=== PATIENT | male | born 1960 | race Caucasian/White ===

== ENCOUNTER 2021-03-15 11:32 | Emergency (ER) | payer OTHER ==
[2021-03-15 13:59] LABS: #Eosinphils 0.1 thou/uL (0.0-0.7); #Lymphocytes 3.4 thou/uL (1.20-3.40); #Monocytes 1.4 thou/uL (0.11-0.59); #Neutrophils 7.5 thou/uL (1.40-6.50); %Basophils 0.2 % (0.0-1.0); %Lymphocytes 27.1 % (21.0-51.0); %Monocytes 11.2 % (0.0-10.0); %Neutrophils 60.4 % (42.0-75.0); Hemoglobin 14.2 g/dL (14.0-18.0); Mean Corpuscular HGB CONC 35.1 g/dL (32.0-36.0); Mean Corpuscular Hemoglobin 31.6 pg (27.0-31.0); Mean Corpuscular Volume 90.1 fL (78.0-98.0); Mean Platelet Volume 6.2 fL (7.4-10.4); Platelet Count 259 thou/uL (130-400); RBC Distribution Width 12.2 % (11.5-14.5); Red Blood Cell (RBC) Count 4.48 mill/uL (4.70-6.10); White Blood Cell (WBC) Count 12.4 thou/uL (4.8-10.8)
[2021-03-15 14:07] LABS: Bilirubin Negative (Negative); Blood, Urine Negative (Negative); Clarity Clear (Clear); Glucose, Urine (Dipstick) 70 mg/dL (Negative); Ketone, Urine Negative (Negative); Leukocyte Negative Leu/uL (Negative); Nitrite Negative (Negative); Protein, Urine (Dipstick) Negative (Neg-Trace); Specific Gravity, Urine 1.015 (1.002-1.036); Urobilinogen Normal mg/dL (Less than 2); pH, Urine 6.5 (5.0-9.0)
[2021-03-15 14:22] LABS: ALT (SGPT) 27 U/L (8-55); AST (SGOT) 29 U/L (5-34); Albumin 4.2 g/dL (3.4-4.8); Alkaline Phosphatase 80 U/L (40-110); Anion Gap 13 mmol/L (10-20); BUN (Urea Nitrogen) 10 mg/dL (8.4-25.7); Bilirubin, Total 1.6 mg/dL (0.2-1.2); Calc. Creatinine Clearance 0 mL/min (70-130); Calcium 9.6 mg/dL (7.8-10.44); Carbon Dioxide 24 mmol/L (23-31); Chloride 95 mmol/L (98-107); Globulin 2.8 g/dL (2.4-3.5); Glucose 125 mg/dL (80-115); Lipase 35 U/L (8-78); Sodium 128 mmol/L (136-145)
== END 2021-03-15 15:52 | disposition home or self-care (01) ==
LOC: ERS 11:32
DX: M54.5 Low back pain (principal); B02.9 Zoster without complications; E03.9 Hypothyroidism, unspecified; K21.9 Gastro-esophageal reflux disease without esophagitis; Z85.841 Personal history of malignant neoplasm of brain
CPT/HCPCS: 36415; 80053; 81003; 83690; 85025; 99284

== ENCOUNTER 2021-04-14 10:30 | Outpatient (CLI) | payer OTHER | END 2021-04-14 10:31 | disposition home or self-care (01) | LOC: PET 10:30 | PROVIDERS: ATTEND Internal Medicine Hematology & Oncology | DX: C34.01 Malignant neoplasm of right main bronchus (principal); R91.8 Other nonspecific abnormal finding of lung field | CPT/HCPCS: 78815; A9552 ==

== ENCOUNTER 2021-06-09 12:42 | Day surgery (SDC) | payer OTHER ==
[2021-06-09] MEDS ORDERED: diphenhydrAMINE 25 MG CAP ONE (13:15)
[2021-06-09] MEDS ORDERED: Acetaminophen 500 MG TAB ONE (13:15)
[2021-06-09] MEDS ORDERED: Sodium Chloride 0.9% 10 ML ONE ×2 (13:15)
[2021-06-09 17:01] VITALS: BP 167/93; TEMP 97.8
== END 2021-06-09 17:00 | disposition home or self-care (01) ==
LOC: ONC/OP 12:42
PROVIDERS: ATTEND Internal Medicine Hematology & Oncology
PROC: 30233N1 Transfusion of Nonautologous Red Blood Cells into Peripheral Vein, Percutaneous Approach (ICD-10-PCS; principal; 2021-06-09)
DX: D64.9 Anemia, unspecified (principal); D69.6 Thrombocytopenia, unspecified
CPT/HCPCS: 36430; 86850; 86900; 86901; J1642; P9016

== ENCOUNTER 2021-06-14 09:45 | Outpatient (CLI) | payer OTHER | END 2021-06-14 09:46 | disposition home or self-care (01) | LOC: PET 09:45 | PROVIDERS: ATTEND Internal Medicine Hematology & Oncology | DX: C34.01 Malignant neoplasm of right main bronchus (principal); C79.31 Secondary malignant neoplasm of brain; C79.9 Secondary malignant neoplasm of unspecified site | CPT/HCPCS: 78815; A9552 ==

== ENCOUNTER 2021-06-19 13:34 | Inpatient (IN) | payer OTHER ==
[~2021-06-19 13:34] MED LIST: Iopamidol-370 76% 500 ML 1 ML ONE
[2021-06-19 14:19] LABS: Bilirubin Negative (Negative); Blood, Urine Negative (Negative); Clarity Clear (Clear); Glucose, Urine (Dipstick) 50 mg/dL (Negative); Ketone, Urine Negative (Negative); Leukocyte Negative Leu/uL (Negative); Nitrite Negative (Negative); Protein, Urine (Dipstick) 20 mg/dL (Neg-Trace); Specific Gravity, Urine 1.013 (1.002-1.036); Urobilinogen Normal mg/dL (Less than 2)
[2021-06-19 14:23] LABS: Hemoglobin 4.7 g/dL (14.0-18.0); Mean Corpuscular HGB CONC 37.7 g/dL (32.0-36.0); Mean Corpuscular Hemoglobin 35.3 pg (27.0-31.0); Mean Corpuscular Volume 93.6 fL (78.0-98.0); Mean Platelet Volume 7.4 fL (7.4-10.4); Platelet Count 35 thou/uL (130-400); RBC Distribution Width 13.3 % (11.5-14.5); Red Blood Cell (RBC) Count 1.33 mill/uL (4.70-6.10); White Blood Cell (WBC) Count 0.7 thou/uL (4.8-10.8)
[2021-06-19 14:37] LABS: ALT (SGPT) 32 U/L (8-55); AST (SGOT) 24 U/L (5-34); Albumin 3.8 g/dL (3.4-4.8); Alkaline Phosphatase 129 U/L (40-110); Anion Gap 16 mmol/L (10-20); BUN (Urea Nitrogen) 20 mg/dL (8.4-25.7); Bilirubin, Total 0.9 mg/dL (0.2-1.2); Calc. Creatinine Clearance 0 mL/min (70-130); Calcium 8.8 mg/dL (7.8-10.44); Carbon Dioxide 22 mmol/L (23-31); Chloride 101 mmol/L (98-107); Globulin 2.7 g/dL (2.4-3.5); Glucose 226 mg/dL (80-115); Potassium 3.1 mmol/L (3.5-5.1); Protein, Total 6.5 g/dL (5.8-8.1); Sodium 136 mmol/L (136-145)
[2021-06-19 14:42] LABS: Magnesium 0.8 mg/dL (1.6-2.6)
[2021-06-19 14:44] LABS: Band 7 % (5-11); Dohle Bodies SLIGHT; Lymphocytes 44 % (21-51); MDiff Complete? YES; Metamyelocyte 1 % (0-0); Monocytes 13 % (0-10); Neutrophil 32 % (42-75); Ovalocytes SLIGHT = 2-5 cells (100X) (0-1/hpf); Platelet Morphology Comment Appears Decreased; Polychromasia SLIGHT = 2-3 cells (100X) (0-2/hpf); Reactive Lymphocytes 3 % (0-10)
[2021-06-19 15:46] LABS: Hemoglobin 4.6 g/dL (14.0-18.0); Mean Corpuscular HGB CONC 36.5 g/dL (32.0-36.0); Mean Corpuscular Hemoglobin 34.7 pg (27.0-31.0); Mean Corpuscular Volume 95.1 fL (78.0-98.0); Mean Platelet Volume 8.2 fL (7.4-10.4); Platelet Count 42 thou/uL (130-400); RBC Distribution Width 13.6 % (11.5-14.5); Red Blood Cell (RBC) Count 1.33 mill/uL (4.70-6.10); White Blood Cell (WBC) Count 0.6 thou/uL (4.8-10.8)
[2021-06-19 16:08] LABS: Band 8 % (5-11); Dohle Bodies SLIGHT; Lymphocytes 58 % (21-51); MDiff Complete? YES; Monocytes 8 % (0-10); Neutrophil 24 % (42-75); Platelet Morphology Comment Appears Decreased; Polychromasia SLIGHT = 2-3 cells (100X) (0-2/hpf)
[2021-06-19 16:45] LABS: SARS-CoV-2 NAA Rapid Test Not Detected (NotDetected)
[2021-06-19] MEDS ORDERED: Magnesium 2 GM/50 ML BAG (IN WATER) ONE (17:07)
[2021-06-19] MEDS ORDERED: Ondansetron ODT 4 MG TAB PO PRN (17:48)
[2021-06-19] MEDS ORDERED: Ondansetron PF 4 MG/2 ML Vial IVP PRN (17:48)
[2021-06-19] MEDS ORDERED: Potassium Chloride 20 MEQ TAB PO SCH ×2 (17:48→21:00)
[2021-06-19 18:32] VITALS: BMI 26.0
[2021-06-19] MEDS: Famotidine 20 MG TAB PO SCH (21:01)
[2021-06-19] MEDS ORDERED: Magnesium 2 GM/50 ML 2 GM in Premix Bag 1 BAG IVPB SCH (22:00)
[2021-06-20] MEDS: Sodium Chloride 0.9% 1,000 ML IV SCH ×2 (03:13→17:42)
[2021-06-20] MEDS: Levothyroxine 150 MCG TAB PO SCH (05:35)
[2021-06-20 05:57] LABS: Hemoglobin 6.2 g/dL (14.0-18.0); Mean Corpuscular HGB CONC 36.9 g/dL (32.0-36.0); Mean Corpuscular Hemoglobin 33.7 pg (27.0-31.0); Mean Corpuscular Volume 91.5 fL (78.0-98.0); Mean Platelet Volume 7.6 fL (7.4-10.4); Platelet Count 24 thou/uL (130-400); RBC Distribution Width 13.2 % (11.5-14.5); Red Blood Cell (RBC) Count 1.84 mill/uL (4.70-6.10); White Blood Cell (WBC) Count 0.3 thou/uL (4.8-10.8)
[2021-06-20 06:17] LABS: MDiff Complete? YES; Platelet Morphology Comment Appears Decreased; Spherocytes SLIGHT = 1-5 cells (100X) (None Seen)
[2021-06-20 06:24] LABS: ALT (SGPT) 27 U/L (8-55); AST (SGOT) 20 U/L (5-34); Albumin 3.3 g/dL (3.4-4.8); Alkaline Phosphatase 108 U/L (40-110); Anion Gap 15 mmol/L (10-20); BUN (Urea Nitrogen) 16 mg/dL (8.4-25.7); Bilirubin, Total 1.4 mg/dL (0.2-1.2); Calc. Creatinine Clearance 60 mL/min (70-130); Calcium 9.1 mg/dL (7.8-10.44); Carbon Dioxide 23 mmol/L (23-31); Chloride 105 mmol/L (98-107); Globulin 2.8 g/dL (2.4-3.5); Glucose 116 mg/dL (80-115); Magnesium 1.1 mg/dL (1.6-2.6); Potassium 3.7 mmol/L (3.5-5.1); Protein, Total 6.1 g/dL (5.8-8.1); Sodium 139 mmol/L (136-145)
[2021-06-20] MEDS: Potassium Chloride 20 MEQ TAB PO SCH ×2 (08:56→17:42)
[2021-06-20] MEDS: Famotidine 20 MG TAB PO SCH ×2 (08:56→21:15)
[2021-06-20] MEDS ORDERED: Prevnar 13-Val Conj/PF 0.5 ML SYRINGE IM ONE (09:00)
[2021-06-20 18:39] LABS: Iron 217 ug/dL (65-175); Iron Binding Capacity, Total 221 mcg/dL (261-462)
[2021-06-20 20:16] LABS: Vitamin B12 Greater than 2000 pg/mL (211-911)
[2021-06-20 20:48] LABS: Ferritin 4688.54 ng/mL (22-322)
[2021-06-21] MEDS: Sodium Chloride 0.9% 1,000 ML IV SCH ×4 (00:58→16:39)
[2021-06-21] MEDS: Levothyroxine 150 MCG TAB PO SCH (05:48)
[2021-06-21 06:04] LABS: Hemoglobin 5.6 g/dL (14.0-18.0); Platelet Count 14 thou/uL (130-400)
[2021-06-21 06:19] LABS: Band 4 % (5-11); Lymphocytes 46 % (21-51); MDiff Complete? YES; Mean Corpuscular HGB CONC 36.7 g/dL (32.0-36.0); Mean Corpuscular Hemoglobin 34.1 pg (27.0-31.0); Mean Platelet Volume 7.8 fL (7.4-10.4); Monocytes 8 % (0-10); Neutrophil 42 % (42-75); Platelet Morphology Comment Appears Decreased; RBC Distribution Width 13.3 % (11.5-14.5); Red Blood Cell (RBC) Count 1.64 mill/uL (4.70-6.10)
[2021-06-21 06:26] LABS: Anion Gap 9 mmol/L (10-20); BUN (Urea Nitrogen) 12 mg/dL (8.4-25.7); Calc. Creatinine Clearance 69 mL/min (70-130); Calcium 9.1 mg/dL (7.8-10.44); Carbon Dioxide 24 mmol/L (23-31); Chloride 112 mmol/L (98-107); Glucose 84 mg/dL (80-115); Magnesium 1.2 mg/dL (1.6-2.6); Potassium 3.9 mmol/L (3.5-5.1); Sodium 141 mmol/L (136-145)
[2021-06-21 06:44] LABS: Hemoglobin A1c 6.6 % (4.0-6.0)
[2021-06-21] MEDS: Famotidine 20 MG TAB PO SCH ×2 (09:36→21:14)
[2021-06-21] MEDS: Potassium Chloride 20 MEQ TAB PO SCH ×2 (09:37→16:40)
[2021-06-21] MEDS ORDERED: Electrolyte Replacement Protocol 1 EACH FS SCH (15:00)
[2021-06-21] MEDS ORDERED: Magnesium Sulfate 4 GM in Sodium Chloride 0.9% 250 ML 250 ML IVPB SCH (16:30)
[2021-06-21] MEDS: Magnesium Oxide 400 MG TAB PO SCH (21:22)
[2021-06-22] MEDS: Sodium Chloride 0.9% 1,000 ML IV SCH (04:08)
[2021-06-22 04:31] LABS: Platelet Count 10 thou/uL (130-400)
[2021-06-22 05:03] LABS: Anion Gap 9 mmol/L (10-20); BUN (Urea Nitrogen) 10 mg/dL (8.4-25.7); Calc. Creatinine Clearance 68 mL/min (70-130); Calcium 9.3 mg/dL (7.8-10.44); Carbon Dioxide 24 mmol/L (23-31); Chloride 111 mmol/L (98-107); Glucose 90 mg/dL (80-115); Magnesium 1.7 mg/dL (1.6-2.6); Sodium 140 mmol/L (136-145)
[2021-06-22] MEDS: Acetaminophen 500 MG TAB PO PRN ×2 (05:43→20:37)
[2021-06-22] MEDS: Levothyroxine 150 MCG TAB PO SCH (05:44)
[2021-06-22] MEDS ORDERED: Magnesium 2 GM/50 ML 2 GM in Premix Bag 1 BAG IVPB SCH (06:00)
[2021-06-22 06:11] LABS: Hemoglobin 6.1 g/dL (14.0-18.0); Mean Corpuscular Hemoglobin 33.4 pg (27.0-31.0); Mean Corpuscular Volume 92.9 fL (78.0-98.0); Mean Platelet Volume 7.9 fL (7.4-10.4); RBC Distribution Width 13.2 % (11.5-14.5); Red Blood Cell (RBC) Count 1.82 mill/uL (4.70-6.10); White Blood Cell (WBC) Count 1.8 thou/uL (4.8-10.8)
[2021-06-22 06:12] LABS: Band 2 % (5-11); Lymphocytes 32 % (21-51); MDiff Complete? YES; Monocytes 10 % (0-10); Myelocyte 4 % (0-0); Neutrophil 52 % (42-75); Platelet Morphology Comment Appears Decreased
[2021-06-22] MEDS ORDERED: Cepastat Lozenges 1 LOZ PO PRN (09:58)
[2021-06-22] MEDS ORDERED: Hydrocerin (Eucerin) Cream 120 gm Jar TOP PRN (09:58)
[2021-06-22] MEDS ORDERED: Benzonatate 100 MG CAP PO PRN (09:58)
[2021-06-22] MEDS ORDERED: Loperamide HCl 2 MG CAP PO PRN (09:58)
[2021-06-22] MEDS ORDERED: Artificial Tear Sol 15 ML BOT EA EYE PRN (09:58)
[2021-06-22] MEDS ORDERED: Sodium Chloride 0.65% Nasal 44 ML BOT EA NARE PRN (09:58)
[2021-06-22] MEDS ORDERED: Calcium Carbonate 500 MG ChewTAB PO PRN (09:58)
[2021-06-22] MEDS ORDERED: Loratadine 10 MG TAB PO PRN (09:58)
[2021-06-22] MEDS ORDERED: Bisacodyl 5 MG TAB PO PRN (09:58)
[2021-06-22] MEDS ORDERED: hydrALAZINE 20 MG/ML VIAL SLOW IVP PRN (09:58)
[2021-06-22] MEDS ORDERED: Senokot S 8.6-50 MG TAB PO PRN (09:58)
[2021-06-22] MEDS: Magnesium Oxide 400 MG TAB PO SCH ×2 (10:23→20:37)
[2021-06-22] MEDS: Potassium Chloride 20 MEQ TAB PO SCH ×2 (10:23→19:28)
[2021-06-22] MEDS: Megestrol Acetate 800 MG/20 ML UDCUP PO SCH (10:23)
[2021-06-22] MEDS: Famotidine 20 MG TAB PO SCH ×2 (10:24→20:38)
[2021-06-22] MEDS ORDERED: Magnevist 469MG/ML 20 ML VIAL ONE (11:40)
[2021-06-22 23:14] LABS: Lactic Acid 1.4 mmol/L (0.5-2.2)
[2021-06-22] MEDS ORDERED: Piperacillin/Tazobactam 3.375 GM in Sodium Chloride 0.9% 100 ML IVPB SCH ×2 (23:15→23:59)
[2021-06-22] MEDS ORDERED: VANCOMYCIN 1.75 GM/350 ML BAG 1.75 GM in Premix Bag 1 BAG IVPB SCH (23:30)
[2021-06-23] MEDS: Piperacillin/Tazobactam 3.375 GM in Sodium Chloride 0.9% 100 ML IVPB SCH ×3 (04:10→20:49)
[2021-06-23 04:30] LABS: Platelet Count 6 thou/uL (130-400)
[2021-06-23 04:43] LABS: ALT (SGPT) 23 U/L (8-55); AST (SGOT) 27 U/L (5-34); Albumin 3.1 g/dL (3.4-4.8); Alkaline Phosphatase 113 U/L (40-110); Anion Gap 11 mmol/L (10-20); BUN (Urea Nitrogen) 13 mg/dL (8.4-25.7); Bilirubin, Total 1.5 mg/dL (0.2-1.2); Calc. Creatinine Clearance 69 mL/min (70-130); Calcium 9.8 mg/dL (7.8-10.44); Carbon Dioxide 23 mmol/L (23-31); Chloride 109 mmol/L (98-107); Glucose 138 mg/dL (80-115); Magnesium 1.3 mg/dL (1.6-2.6); Phosphorus 2.5 mg/dL (2.3-4.7); Potassium 4.4 mmol/L (3.5-5.1); Protein, Total 6.1 g/dL (5.8-8.1); Sodium 139 mmol/L (136-145)
[2021-06-23 04:48] LABS: Band 28 % (5-11); Hemoglobin 8.6 g/dL (14.0-18.0); Lymphocytes 12 % (21-51); MDiff Complete? YES; Mean Corpuscular HGB CONC 36.1 g/dL (32.0-36.0); Mean Corpuscular Hemoglobin 32.9 pg (27.0-31.0); Mean Corpuscular Volume 91.4 fL (78.0-98.0); Mean Platelet Volume 11.9 fL (7.4-10.4); Monocytes 10 % (0-10); Neutrophil 50 % (42-75); Platelet Morphology Comment Appears Decreased; RBC Distribution Width 13.5 % (11.5-14.5); RBC Morphology Normal; White Blood Cell (WBC) Count 1.6 thou/uL (4.8-10.8)
[2021-06-23] MEDS ORDERED: Magnesium 2 GM/50 ML 2 GM in Premix Bag 1 BAG IVPB SCH (05:45)
[2021-06-23] MEDS: Levothyroxine 150 MCG TAB PO SCH (06:31)
[2021-06-23] MEDS ORDERED: Magnesium Sulfate 4 GM in Sodium Chloride 0.9% 250 ML 250 ML IVPB SCH (07:00)
[2021-06-23] MEDS: Megestrol Acetate 800 MG/20 ML UDCUP PO SCH (09:21)
[2021-06-23] MEDS: Famotidine 20 MG TAB PO SCH ×2 (09:21→21:07)
[2021-06-23] MEDS: Potassium Chloride 20 MEQ TAB PO SCH ×2 (09:22→17:10)
[2021-06-23] MEDS: Magnesium Oxide 400 MG TAB PO SCH ×2 (09:22→20:50)
[2021-06-23 12:26] LABS: Mean Corpuscular HGB CONC 35.1 g/dL (32.0-36.0); Mean Corpuscular Hemoglobin 31.8 pg (27.0-31.0); Mean Corpuscular Volume 90.6 fL (78.0-98.0); Mean Platelet Volume 11.5 fL (7.4-10.4); Platelet Count 6 thou/uL (130-400); RBC Distribution Width 13.7 % (11.5-14.5); Red Blood Cell (RBC) Count 2.21 mill/uL (4.70-6.10); White Blood Cell (WBC) Count 2.5 thou/uL (4.8-10.8)
[2021-06-23] MEDS ORDERED: OCTAGAM 10% (10 GM/100 ML VIAL) IVPB SCH (12:45)
[2021-06-23] MEDS: Vancomycin 1 GM in Premix Bag 1 BAG IVPB SCH (13:03)
[2021-06-23] MEDS ORDERED: ADMIXTURE FEE IVPB SCH (13:45)
[2021-06-23] MEDS ORDERED: Dexamethasone 4 MG TAB PO SCH (13:45)
[2021-06-23] MEDS ORDERED: OCTAGAM IVPB SCH (13:45)
[2021-06-23] MEDS ORDERED: diphenhydrAMINE 25 MG CAP PO SCH (15:15)
[2021-06-23] MEDS: Acetaminophen 500 MG TAB PO PRN (15:22)
[2021-06-24] MEDS: Vancomycin 1 GM in Premix Bag 1 BAG IVPB SCH ×2 (00:52→13:05)
[2021-06-24] MEDS: Piperacillin/Tazobactam 3.375 GM in Sodium Chloride 0.9% 100 ML IVPB SCH ×3 (04:45→19:47)
[2021-06-24] MEDS: Levothyroxine 150 MCG TAB PO SCH (05:43)
[2021-06-24] MEDS: Dexamethasone 4 MG TAB PO SCH (08:03)
[2021-06-24] MEDS: Megestrol Acetate 800 MG/20 ML UDCUP PO SCH (08:03)
[2021-06-24] MEDS: Famotidine 20 MG TAB PO SCH (08:04)
[2021-06-24] MEDS: Potassium Chloride 20 MEQ TAB PO SCH ×2 (08:04→16:44)
[2021-06-24] MEDS: Magnesium Oxide 400 MG TAB PO SCH ×2 (08:04→20:37)
[2021-06-24 10:29] LABS: Mean Corpuscular HGB CONC 35.9 g/dL (32.0-36.0); Mean Corpuscular Hemoglobin 32.8 pg (27.0-31.0); Mean Corpuscular Volume 91.4 fL (78.0-98.0); Mean Platelet Volume 12.8 fL (7.4-10.4); Platelet Count 7 thou/uL (130-400); RBC Distribution Width 14.1 % (11.5-14.5); Red Blood Cell (RBC) Count 2.15 mill/uL (4.70-6.10); White Blood Cell (WBC) Count 4.3 thou/uL (4.8-10.8)
[2021-06-24 11:12] LABS: #Lymphocytes 0.8 thou/uL (1.20-3.40); #Monocytes 0.2 thou/uL (0.11-0.59); #Neutrophils 3.4 thou/uL (1.40-6.50); %Eosinophils 0.6 % (0.0-10.0); %Lymphocytes 18.6 % (21.0-51.0); %Monocytes 3.5 % (0.0-10.0); %Neutrophils 77.4 % (42.0-75.0); Band 23 % (5-11); Lymphocytes 15 % (21-51); MDiff Complete? YES; Monocytes 7 % (0-10); Neutrophil 55 % (42-75); Platelet Morphology Comment Appears Decreased; Polychromasia SLIGHT = 2-3 cells (100X) (0-2/hpf)
[2021-06-24 11:48] LABS: Vancomycin, Trough 24.9 ug/mL
[2021-06-24] MEDS: Vancomycin HCl 750 MG in Sodium Chloride 0.9% 250 ML 250 ML IVPB SCH ×2 (12:58→23:48)
[2021-06-24] MEDS: Mirtazapine 30 MG TAB PO SCH (20:37)
[2021-06-25] MEDS: Piperacillin/Tazobactam 3.375 GM in Sodium Chloride 0.9% 100 ML IVPB SCH ×3 (03:56→19:18)
[2021-06-25] MEDS: Levothyroxine 150 MCG TAB PO SCH (06:22)
[2021-06-25 07:18] LABS: Phosphorus 3.4 mg/dL (2.3-4.7)
[2021-06-25 07:21] LABS: Anion Gap 13 mmol/L (10-20); BUN (Urea Nitrogen) 25 mg/dL (8.4-25.7); Calc. Creatinine Clearance 52 mL/min (70-130); Calcium 10.4 mg/dL (7.8-10.44); Carbon Dioxide 18 mmol/L (23-31); Chloride 110 mmol/L (98-107); Glucose 248 mg/dL (80-115); Magnesium 1.3 mg/dL (1.6-2.6); Potassium 5.1 mmol/L (3.5-5.1); Sodium 136 mmol/L (136-145)
[2021-06-25 07:27] LABS: Band 19 % (5-11); Hemoglobin 6.5 g/dL (14.0-18.0); Lymphocytes 15 % (21-51); MDiff Complete? YES; Mean Corpuscular HGB CONC 34.5 g/dL (32.0-36.0); Mean Corpuscular Hemoglobin 31.7 pg (27.0-31.0); Mean Corpuscular Volume 91.8 fL (78.0-98.0); Mean Platelet Volume 12.1 fL (7.4-10.4); Metamyelocyte 3 % (0-0); Monocytes 1 % (0-10); Myelocyte 1 % (0-0); Neutrophil 61 % (42-75); Platelet Count 12 thou/uL (130-400); Platelet Morphology Comment Appears Decreased; RBC Distribution Width 14.2 % (11.5-14.5); Red Blood Cell (RBC) Count 2.05 mill/uL (4.70-6.10); White Blood Cell (WBC) Count 9.2 thou/uL (4.8-10.8)
[2021-06-25] MEDS ORDERED: Magnesium Sulfate 4 GM in Sodium Chloride 0.9% 250 ML 250 ML IVPB SCH (08:00)
[2021-06-25] MEDS: Magnesium Oxide 400 MG TAB PO SCH ×2 (08:19→20:36)
[2021-06-25] MEDS: Potassium Chloride 20 MEQ TAB PO SCH ×2 (08:19→16:55)
[2021-06-25] MEDS: Megestrol Acetate 800 MG/20 ML UDCUP PO SCH (08:19)
[2021-06-25] MEDS: Dexamethasone 4 MG TAB PO SCH (08:20)
[2021-06-25] MEDS ORDERED: Vancomycin HCl 750 MG in Sodium Chloride 0.9% 250 ML 250 ML IVPB SCH (12:00)
[2021-06-25 12:35] LABS: Vancomycin, Trough 21.4 ug/mL
[2021-06-25] MEDS: VANCOMYCIN 1.25 GM/250 ML BAG 1.25 GM in Premix Bag 1 BAG IVPB SCH (16:55)
[2021-06-25] MEDS: Mirtazapine 30 MG TAB PO SCH (20:36)
[2021-06-26] MEDS: Piperacillin/Tazobactam 3.375 GM in Sodium Chloride 0.9% 100 ML IVPB SCH ×2 (03:51→14:57)
[2021-06-26] MEDS: Levothyroxine 150 MCG TAB PO SCH (06:06)
[2021-06-26 06:27] LABS: #Monocytes 0.4 thou/uL (0.11-0.59); %Eosinophils 0.4 % (0.0-10.0); %Lymphocytes 13.3 % (21.0-51.0); %Monocytes 5.3 % (0.0-10.0); Hemoglobin 6.3 g/dL (14.0-18.0); Mean Corpuscular HGB CONC 34.8 g/dL (32.0-36.0); Mean Corpuscular Hemoglobin 32.3 pg (27.0-31.0); Mean Corpuscular Volume 92.7 fL (78.0-98.0); Mean Platelet Volume 11.7 fL (7.4-10.4); Platelet Count 19 thou/uL (130-400); RBC Distribution Width 14.1 % (11.5-14.5); Red Blood Cell (RBC) Count 1.95 mill/uL (4.70-6.10); White Blood Cell (WBC) Count 7.4 thou/uL (4.8-10.8)
[2021-06-26 07:56] LABS: MDiff Complete? YES
[2021-06-26] MEDS: Megestrol Acetate 800 MG/20 ML UDCUP PO SCH (08:52)
[2021-06-26] MEDS: Dexamethasone 4 MG TAB PO SCH (08:53)
[2021-06-26] MEDS: Potassium Chloride 20 MEQ TAB PO SCH (08:53)
[2021-06-26] MEDS: Magnesium Oxide 400 MG TAB PO SCH (08:53)
[2021-06-26] MEDS: VANCOMYCIN 1.25 GM/250 ML BAG 1.25 GM in Premix Bag 1 BAG IVPB SCH (16:58)
[2021-06-26 17:27] VITALS: BP 152/86; TEMP 97.5
== END 2021-06-26 18:22 | disposition home or self-care (01) | DRG 809 ==
LOC: ERS 13:34 → MSONC 16:18 → OBSVTOIN 17:48
PROVIDERS: ADMIT Family Medicine; ATTEND Internal Medicine
PROC: 30233N1 Transfusion of Nonautologous Red Blood Cells into Peripheral Vein, Percutaneous Approach (ICD-10-PCS; 2021-06-19)
PROC: 30233R1 Transfusion of Nonautologous Platelets into Peripheral Vein, Percutaneous Approach (ICD-10-PCS; principal; 2021-06-21)
PROC: XW03396 Introduction of Ceftolozane/Tazobactam Anti-infective into Peripheral Vein, Percutaneous Approach, New Technology Group 6 (ICD-10-PCS; 2021-06-23)
DX: D61.810 Antineoplastic chemotherapy induced pancytopenia (principal); C79.31 Secondary malignant neoplasm of brain; N17.9 Acute kidney failure, unspecified; C79.82 Secondary malignant neoplasm of genital organs; C79.70 Secondary malignant neoplasm of unspecified adrenal gland; C79.51 Secondary malignant neoplasm of bone; I25.10 Atherosclerotic heart disease of native coronary artery without angina pectoris; I12.9 Hypertensive chronic kidney disease with stage 1 through stage 4 chronic kidney disease, or unspecified chronic kidney disease; E03.9 Hypothyroidism, unspecified; K21.9 Gastro-esophageal reflux disease without esophagitis; E78.00 Pure hypercholesterolemia, unspecified; J44.9 Chronic obstructive pulmonary disease, unspecified; C80.1 Malignant (primary) neoplasm, unspecified; E83.42 Hypomagnesemia; E78.5 Hyperlipidemia, unspecified; E87.6 Hypokalemia; Z20.822 Contact with and (suspected) exposure to COVID-19; N18.2 Chronic kidney disease, stage 2 (mild); R73.9 Hyperglycemia, unspecified; D70.9 Neutropenia, unspecified; R50.81 Fever presenting with conditions classified elsewhere; T45.1X5D Adverse effect of antineoplastic and immunosuppressive drugs, subsequent encounter; Z79.82 Long term (current) use of aspirin; Z79.899 Other long term (current) drug therapy; Z87.891 Personal history of nicotine dependence
CPT/HCPCS: 36415; 36430; 70553; 71045; 71275; 80048; 80053; 80202; 81003; 82274; 82607; 82728; 82746; 83036; 83540; 83550; 83605; 83735; 83880; 84100; 84484; 85025; 86850; 86870; 86900; 86901; 86905; 86922; 87040; 93005; A9579; G0378; J1568; J1642; J2543; J3370; J3475; J3490; J7050; J8540; P9016; P9035; Q9967; U0002

== ENCOUNTER 2021-06-28 10:42 | Emergency (ER) | payer OTHER ==
[2021-06-28] MEDS ORDERED: Magnesium 2 GM/50 ML BAG (IN WATER) ONE (10:57)
[2021-06-28] MEDS ORDERED: Diltiazem 125 MG/25 ML ONE ×2 (11:04→11:05)
[2021-06-28 11:29] LABS: #Monocytes 0.7 thou/uL (0.11-0.59); %Basophils 0.5 % (0.0-1.0); %Eosinophils 0.1 % (0.0-10.0); %Monocytes 8.1 % (0.0-10.0); %Neutrophils 68.3 % (42.0-75.0); Hemoglobin 10.3 g/dL (14.0-18.0); Mean Corpuscular HGB CONC 33.7 g/dL (32.0-36.0); Mean Corpuscular Hemoglobin 31.1 pg (27.0-31.0); Mean Corpuscular Volume 92.3 fL (78.0-98.0); Mean Platelet Volume 10.7 fL (7.4-10.4); Platelet Count 54 thou/uL (130-400); RBC Distribution Width 13.3 % (11.5-14.5); Red Blood Cell (RBC) Count 3.32 mill/uL (4.70-6.10); White Blood Cell (WBC) Count 8.8 thou/uL (4.8-10.8)
[2021-06-28 11:37] LABS: PTT 25.1 sec (22.9-36.1); Prothrombin Time 13.2 sec (12.0-14.7)
[2021-06-28 11:40] LABS: D-Dimer Test 3.53 *mcg/mL (0.27-0.43)
[2021-06-28 11:41] LABS: ALT (SGPT) 75 U/L (8-55); AST (SGOT) 40 U/L (5-34); Albumin 3.7 g/dL (3.4-4.8); Alkaline Phosphatase 138 U/L (40-110); Anion Gap 15 mmol/L (10-20); BUN (Urea Nitrogen) 27 mg/dL (8.4-25.7); Bilirubin, Total 0.9 mg/dL (0.2-1.2); Calc. Creatinine Clearance 0 mL/min (70-130); Calcium 11.1 mg/dL (7.8-10.44); Carbon Dioxide 19 mmol/L (23-31); Chloride 109 mmol/L (98-107); Globulin 4.6 g/dL (2.4-3.5); Glucose 152 mg/dL (80-115); Magnesium 1.2 mg/dL (1.6-2.6); Potassium 3.9 mmol/L (3.5-5.1); Protein, Total 8.3 g/dL (5.8-8.1); Sodium 139 mmol/L (136-145)
[2021-06-28 11:42] LABS: Acetaminophen Less than 6.0 mcg/mL (10.0-30.0); Alcohol Less than 10 mg/dL (Less than 10); Salicylate Less than 8.0 mg/dL (15.0-30.0)
[2021-06-28] MEDS ORDERED: Enoxaparin Sodium 80 MG/0.8 ML SYRINGE ONE (11:51)
[2021-06-28 11:52] LABS: Bilirubin Negative (Negative); Blood, Urine Negative (Negative); Clarity Clear (Clear); Glucose, Urine (Dipstick) Normal (Negative); Ketone, Urine Negative (Negative); Leukocyte Negative Leu/uL (Negative); Nitrite Negative (Negative); Protein, Urine (Dipstick) 10 mg/dL (Neg-Trace); Specific Gravity, Urine 1.009 (1.002-1.036); Urobilinogen Normal mg/dL (Less than 2)
[2021-06-28 12:03] LABS: Amphetamine Not Detected (NotDetected); Barbiturates Screen Not Detected (NotDetected); Benzodiazepine Screen Not Detected (NotDetected); Cocaine Metabolite Screen Not Detected (NotDetected); Methadone Not Detected (NotDetected); Methamphetamine Not Detected (NotDetected); Opiate Screen Not Detected (NotDetected); Oxycodone Screen Not Detected (NotDetected); Phencyclidine (PCP) Not Detected (NotDetected); THC/Cannabinoid Screen Not Detected (NotDetected); Tricyclic Screen Not Detected (NotDetected)
== END 2021-06-28 13:58 | disposition home or self-care (01) ==
LOC: ERS 10:42
DX: D69.6 Thrombocytopenia, unspecified (principal); E03.9 Hypothyroidism, unspecified; K21.9 Gastro-esophageal reflux disease without esophagitis; I10 Essential (primary) hypertension; Z79.899 Other long term (current) drug therapy
CPT/HCPCS: 36415; 71045; 71275; 80053; 80306; 80307; 81003; 83735; 83880; 84443; 84484; 85025; 85379; 85610; 85730; 86850; 86900; 86901; 86922; 93005; 96365; 96372; J1650; J3475; Q9967

== ENCOUNTER 2021-07-05 08:53 | Day surgery (SDC) | payer OTHER ==
[2021-07-05] MEDS ORDERED: Acetaminophen 500 MG TAB PO SCH (09:30)
[2021-07-05] MEDS ORDERED: diphenhydrAMINE 25 MG CAP PO SCH (09:30)
[2021-07-05] MEDS ORDERED: diphenhydrAMINE 25 MG CAP ONE (09:38)
[2021-07-05] MEDS ORDERED: Acetaminophen 500 MG TAB ONE (09:38)
[2021-07-05] MEDS ORDERED: Sodium Chloride 0.9% 10 ML ONE (09:39)
[2021-07-05 15:02] VITALS: BP 161/89; TEMP 98.3
== END 2021-07-05 15:02 | disposition home or self-care (01) ==
LOC: ONC/OP 08:53
PROVIDERS: ATTEND Internal Medicine Hematology & Oncology
PROC: 30233N1 Transfusion of Nonautologous Red Blood Cells into Peripheral Vein, Percutaneous Approach (ICD-10-PCS; principal; 2021-07-05)
DX: D64.9 Anemia, unspecified (principal); D69.6 Thrombocytopenia, unspecified
CPT/HCPCS: 36430; 86850; 86900; 86901; 86922; P9016

== ENCOUNTER 2021-07-26 10:36 | Day surgery (SDC) | payer OTHER ==
[2021-07-26] MEDS ORDERED: diphenhydrAMINE 25 MG CAP ONE (10:49)
[2021-07-26] MEDS ORDERED: Sodium Chloride 0.9% 10 ML ONE (10:49)
[2021-07-26] MEDS ORDERED: Acetaminophen 500 MG TAB ONE (10:49)
[2021-07-26] MEDS ORDERED: diphenhydrAMINE 25 MG CAP PO SCH (11:00)
[2021-07-26] MEDS ORDERED: Acetaminophen 500 MG TAB PO SCH (11:00)
[2021-07-26 15:20] VITALS: BP 163/80; TEMP 98.1
== END 2021-07-26 15:39 | disposition home or self-care (01) ==
LOC: ONC/OP 10:36
PROVIDERS: ATTEND Internal Medicine Hematology & Oncology
PROC: 30233N1 Transfusion of Nonautologous Red Blood Cells into Peripheral Vein, Percutaneous Approach (ICD-10-PCS; principal; 2021-07-26)
DX: D64.9 Anemia, unspecified (principal); D69.6 Thrombocytopenia, unspecified
CPT/HCPCS: 36430; 86850; 86870; 86900; 86901; 86922; J1642; P9016

== ENCOUNTER 2021-08-04 09:27 | Day surgery (SDC) | payer OTHER ==
[2021-08-04] MEDS ORDERED: Sodium Chloride 0.9% 10 ML ONE (09:43)
[2021-08-04] MEDS ORDERED: diphenhydrAMINE 25 MG CAP ONE (09:44)
[2021-08-04] MEDS ORDERED: Acetaminophen 500 MG TAB ONE (09:44)
[2021-08-04 12:25] VITALS: BP 150/88; TEMP 98.4
== END 2021-08-04 12:26 | disposition home or self-care (01) ==
LOC: ONC/OP 09:27
PROVIDERS: ATTEND Internal Medicine Hematology & Oncology
PROC: 30233N1 Transfusion of Nonautologous Red Blood Cells into Peripheral Vein, Percutaneous Approach (ICD-10-PCS; principal; 2021-08-04)
DX: D64.9 Anemia, unspecified (principal)
CPT/HCPCS: 36430; 86850; 86870; 86900; 86901; 86922; J1642; P9016

== ENCOUNTER 2021-08-18 11:00 | Outpatient (CLI) | payer OTHER | END 2021-08-18 11:01 | disposition home or self-care (01) | LOC: PET 11:00 | PROVIDERS: ATTEND Internal Medicine Hematology & Oncology | DX: C34.01 Malignant neoplasm of right main bronchus (principal); C79.31 Secondary malignant neoplasm of brain; C78.7 Secondary malignant neoplasm of liver and intrahepatic bile duct; C79.72 Secondary malignant neoplasm of left adrenal gland; C79.71 Secondary malignant neoplasm of right adrenal gland; C77.4 Secondary and unspecified malignant neoplasm of inguinal and lower limb lymph nodes | CPT/HCPCS: 78815; A9552 ==

== ENCOUNTER 2021-08-26 12:41 | Outpatient (CLI) | payer OTHER | END 2021-08-26 12:42 | disposition home or self-care (01) | LOC: ULT 12:41 | PROVIDERS: ATTEND Internal Medicine Hematology & Oncology | DX: Z51.11 Encounter for antineoplastic chemotherapy (principal); C34.01 Malignant neoplasm of right main bronchus; Z79.899 Other long term (current) drug therapy | CPT/HCPCS: 93306 ==

== ENCOUNTER 2021-09-01 08:31 | Outpatient (CLI) | payer OTHER | END 2021-09-01 08:32 | disposition home or self-care (01) | LOC: MRI 08:31 | PROVIDERS: ATTEND Internal Medicine Hematology & Oncology | DX: C34.01 Malignant neoplasm of right main bronchus (principal); C79.31 Secondary malignant neoplasm of brain; G93.89 Other specified disorders of brain | CPT/HCPCS: 70553 ==

== ENCOUNTER 2021-10-06 09:07 | Inpatient (IN) | payer OTHER ==
[2021-10-06 10:30] LABS: INR-International Normal Ratio 1.2
[2021-10-06 10:35] LABS: PTT 20.2 sec (22.9-36.1)
[2021-10-06 10:40] LABS: ALT (SGPT) 27 U/L (8-55); AST (SGOT) 36 U/L (5-34); Albumin 3.2 g/dL (3.4-4.8); Alkaline Phosphatase 117 U/L (40-110); Anion Gap 24 mmol/L (10-20); BUN (Urea Nitrogen) 42 mg/dL (8.4-25.7); Bilirubin, Total 0.9 mg/dL (0.2-1.2); Calc. Creatinine Clearance 0 mL/min (70-130); Calcium 8.8 mg/dL (7.8-10.44); Carbon Dioxide 13 mmol/L (23-31); Chloride 95 mmol/L (98-107); Globulin 2.7 g/dL (2.4-3.5); Glucose 456 mg/dL (80-115); Potassium 3.6 mmol/L (3.5-5.1); Protein, Total 5.9 g/dL (5.8-8.1); Sodium 128 mmol/L (136-145)
[2021-10-06 10:47] LABS: Band 28 % (5-11); Hemoglobin 8.8 g/dL (14.0-18.0); Lymphocytes 28 % (21-51); MDiff Complete? YES; Mean Corpuscular HGB CONC 36.7 g/dL (32.0-36.0); Mean Corpuscular Hemoglobin 37.5 pg (27.0-31.0); Mean Platelet Volume 9.6 fL (7.4-10.4); Metamyelocyte 4 % (0-0); Monocytes 11 % (0-10); Myelocyte 5 % (0-0); Neutrophil 23 % (42-75); Nucleated RBC 6 % (0); Platelet Count 89 thou/uL (130-400); Platelet Morphology Comment Appears Decreased; Polychromasia MODERATE = 3-4 cells (100X) (0-2/hpf); RBC Distribution Width 12.2 % (11.5-14.5); Red Blood Cell (RBC) Count 2.36 mill/uL (4.70-6.10); Reflex for Review?? NO
[2021-10-06 10:59] LABS: CKMB 2.9 ng/mL (0-6.6)
[2021-10-06] MEDS ORDERED: Ondansetron PF 4 MG/2 ML Vial IVP PRN (11:45)
[2021-10-06] MEDS ORDERED: HYDROcodone/Acetaminophen 5/325 mg Tablet PO PRN (11:45)
[2021-10-06] MEDS ORDERED: Bisacodyl 5 MG TAB PO PRN (11:45)
[2021-10-06 11:46] LABS: Bacteria/HPF None Seen HPF (None Seen); Bilirubin Negative (Negative); Blood, Urine 2+ (Negative); Clarity Clear (Clear); Glucose, Urine (Dipstick) Greater than 1000 mg/dL (Negative); Ketone, Urine Negative (Negative); Leukocyte Negative Leu/uL (Negative); Nitrite Negative (Negative); Protein, Urine (Dipstick) 70 mg/dL (Neg-Trace); RBC/HPF 0-3 HPF (0-3); Specific Gravity, Urine 1.026 (1.002-1.036); Squamous Epithelial 0-3 HPF (0-3); Urobilinogen Normal mg/dL (Less than 2); WBC/HPF 0-3 HPF (0-3); pH, Urine 5.5 (5.0-9.0)
[2021-10-06] MEDS ORDERED: Dextrose 50% Abboject 50 ML SYRINGE SLOW IVP PRN (11:46)
[2021-10-06] MEDS ORDERED: Dextrose 5% in Water 1,000 ML IV PRN (11:46)
[2021-10-06 12:19] LABS: SARS-CoV-2 NAA Rapid Test Not Detected (NotDetected)
[2021-10-06 13:31] LABS: Lactic Acid 4.1 mmol/L (0.5-2.2)
[2021-10-06 13:53] LABS: Troponin I 0.138 ng/mL (< 0.028)
[2021-10-06] MEDS ORDERED: Meropenem 1 GM in Sodium Chloride 0.9% 100 ML IVPB SCH ×2 (14:00→15:00)
[2021-10-06] MEDS: Sodium Chloride 0.9% 1,000 ML IV SCH ×2 (15:00→21:36)
[2021-10-06] MEDS: Heparin 5,000 UNITS/ML VIAL SC SCH ×2 (15:50→21:36)
[2021-10-06] MEDS ORDERED: HumaLOG 300 UNITS/3 ML VIAL ONE (16:46)
[2021-10-06] MEDS: HumaLOG 300 UNITS/3 ML VIAL SC PRN (16:55)
[2021-10-06 20:21] VITALS: BMI 22.9
[2021-10-06] MEDS ORDERED: Vancomycin 1 GM in Premix Bag 1 BAG IVPB SCH (21:00)
[2021-10-06] MEDS ORDERED: Meropenem 500 MG in Sodium Chloride 0.9% 100 ML IVPB SCH (21:00)
[2021-10-06] MEDS: Rosuvastatin 20 MG TAB PO SCH (21:37)
[2021-10-07 04:35] LABS: Potassium, Urine 28.6 mmol/L
[2021-10-07 05:05] LABS: Anion Gap 12 mmol/L (10-20); BUN (Urea Nitrogen) 32 mg/dL (8.4-25.7); Calc. Creatinine Clearance 39 mL/min (70-130); Calcium 8.8 mg/dL (7.8-10.44); Carbon Dioxide 22 mmol/L (23-31); Chloride 103 mmol/L (98-107); Glucose 210 mg/dL (80-115); Sodium 134 mmol/L (136-145)
[2021-10-07 05:08] LABS: Potassium 2.8 mmol/L (3.5-5.1)
[2021-10-07 05:20] LABS: Band 16 % (5-11); Differential Comment Immature Cell(s); Hemoglobin 7.3 g/dL (14.0-18.0); Lymphocytes 30 % (21-51); MDiff Complete? YES; Macrocytosis SLIGHT = 6-15 cells (100X) (0-5/hpf); Mean Corpuscular HGB CONC 36.4 g/dL (32.0-36.0); Mean Corpuscular Hemoglobin 36.9 pg (27.0-31.0); Mean Platelet Volume 8.7 fL (7.4-10.4); Metamyelocyte 2 % (0-0); Monocytes 11 % (0-10); Myelocyte 3 % (0-0); Neutrophil 37 % (42-75); Nucleated RBC 10 % (0); Platelet Count 74 thou/uL (130-400); Platelet Morphology Comment Appears Decreased; Polychromasia SLIGHT = 2-3 cells (100X) (0-2/hpf); RBC Distribution Width 12.2 % (11.5-14.5); Red Blood Cell (RBC) Count 1.97 mill/uL (4.70-6.10); White Blood Cell (WBC) Count 3.9 thou/uL (4.8-10.8)
[2021-10-07] MEDS ORDERED: Electrolyte Replacement Protocol FS PRN (05:30)
[2021-10-07] MEDS: Potassium Chloride 40 MEQ in Premix Bag 1 BAG IVPB SCH ×2 (06:26→08:40)
[2021-10-07] MEDS: Levothyroxine Sodium 75 MCG TAB PO SCH (06:28)
[2021-10-07] MEDS ORDERED: Non-Formulary Item 1 EACH (Levothyroxine Sodium [Levothyroxine] 150 MCG Capsule) PO SCH (07:30)
[2021-10-07] MEDS: PHOS-NAK 1 PKT PACK PO SCH ×3 (08:40→17:36)
[2021-10-07] MEDS: Aspirin 325 MG TAB PO SCH (08:40)
[2021-10-07] MEDS: Meropenem 1 GM in Sodium Chloride 0.9% 100 ML IVPB SCH ×2 (08:40→20:37)
[2021-10-07] MEDS: Heparin 5,000 UNITS/ML VIAL SC SCH (08:40)
[2021-10-07] MEDS ORDERED: Amlodipine 5 MG TAB PO SCH (09:00)
[2021-10-07 09:02] LABS: Magnesium 1.2 mg/dL (1.6-2.6)
[2021-10-07] MEDS ORDERED: Loratadine 10 MG TAB PO PRN ×2 (09:11→09:31)
[2021-10-07] MEDS ORDERED: Magnesium Sulfate In Water 4 GM in Premix Bag 1 BAG IVPB SCH (09:15)
[2021-10-07] MEDS ORDERED: predniSONE 20 MG TAB PO SCH (09:30)
[2021-10-07 12:20] LABS: Vancomycin, Random 9.9 ug/mL (See Comment)
[2021-10-07] MEDS ORDERED: Vancomycin 1 GM in Premix Bag 1 BAG IVPB SCH (13:00)
[2021-10-07 16:12] LABS: Lactic Acid 0.8 mmol/L (0.5-2.2)
[2021-10-07 16:16] LABS: Anion Gap 10 mmol/L (10-20); BUN (Urea Nitrogen) 26 mg/dL (8.4-25.7); Calc. Creatinine Clearance 51 mL/min (70-130); Calcium 8.1 mg/dL (7.8-10.44); Carbon Dioxide 21 mmol/L (23-31); Chloride 107 mmol/L (98-107); Glucose 200 mg/dL (80-115); Potassium 4.1 mmol/L (3.5-5.1); Sodium 134 mmol/L (136-145)
[2021-10-07] MEDS ORDERED: hydrALAZINE 20 MG/ML VIAL SLOW IVP PRN (17:27)
[2021-10-07] MEDS: Vancomycin 1 GM in Premix Bag 1 BAG IVPB SCH (17:36)
[2021-10-07] MEDS: Rosuvastatin 20 MG TAB PO SCH (20:37)
[2021-10-07] MEDS: Mirtazapine 30 MG TAB PO SCH (20:37)
[2021-10-07] MEDS: HumaLOG 300 UNITS/3 ML VIAL SC PRN (22:00)
[2021-10-08] MEDS: Sodium Chloride 0.9% 1,000 ML IV SCH ×2 (00:15→16:44)
[2021-10-08] MEDS: Acetaminophen 325 MG TAB PO PRN (03:40)
[2021-10-08] MEDS: HumaLOG 300 UNITS/3 ML VIAL SC PRN (06:16)
[2021-10-08] MEDS: Levothyroxine Sodium 75 MCG TAB PO SCH (06:16)
[2021-10-08 06:28] LABS: Reticulocyte Count 2.2 % (0.5-1.5)
[2021-10-08 06:44] LABS: Band 14 % (5-11); Hemoglobin 9.2 g/dL (14.0-18.0); Hypochromia SLIGHT = 6-15 cells (100X) (0-5/hpf); Lymphocytes 28 % (21-51); MDiff Complete? YES; Mean Corpuscular HGB CONC 36.8 g/dL (32.0-36.0); Mean Corpuscular Hemoglobin 36.2 pg (27.0-31.0); Mean Corpuscular Volume 98.4 fL (78.0-98.0); Mean Platelet Volume 8.9 fL (7.4-10.4); Monocytes 14 % (0-10); Neutrophil 36 % (42-75); Nucleated RBC 5 % (0); Platelet Count 65 thou/uL (130-400); Platelet Morphology Comment Appears Decreased; Polychromasia SLIGHT = 2-3 cells (100X) (0-2/hpf); RBC Distribution Width 13.7 % (11.5-14.5); RBC Morphology Normal; Reactive Lymphocytes 8 % (0-10); Red Blood Cell (RBC) Count 2.54 mill/uL (4.70-6.10)
[2021-10-08 06:49] LABS: ALT (SGPT) 25 U/L (8-55); AST (SGOT) 37 U/L (5-34); Albumin 2.4 g/dL (3.4-4.8); Alkaline Phosphatase 105 U/L (40-110); Anion Gap 11 mmol/L (10-20); BUN (Urea Nitrogen) 24 mg/dL (8.4-25.7); Bilirubin, Total 0.9 mg/dL (0.2-1.2); Calc. Creatinine Clearance 52 mL/min (70-130); Calcium 7.8 mg/dL (7.8-10.44); Carbon Dioxide 17 mmol/L (23-31); Chloride 110 mmol/L (98-107); Globulin 1.8 g/dL (2.4-3.5); Glucose 240 mg/dL (80-115); Magnesium 1.9 mg/dL (1.6-2.6); Potassium 3.1 mmol/L (3.5-5.1); Protein, Total 4.2 g/dL (5.8-8.1); Sodium 135 mmol/L (136-145)
[2021-10-08] MEDS ORDERED: Potassium Phosphate 30 MMOL in Sodium Chloride 0.9% 250 ML 250 ML IVPB SCH (07:30)
[2021-10-08] MEDS ORDERED: Magnesium 2 GM/50 ML(in water) 2 GM in Premix Bag 1 BAG IVPB SCH (08:00)
[2021-10-08] MEDS: Megestrol Acetate 800 MG/20 ML UDCUP PO SCH (08:15)
[2021-10-08] MEDS: predniSONE 20 MG TAB PO SCH (08:15)
[2021-10-08] MEDS ORDERED: Non-Formulary Item 1 EACH (Lansoprazole [Lansoprazole] 30 MG Capsule.Dr) PO SCH (09:00)
[2021-10-08] MEDS: Meropenem 1 GM in Sodium Chloride 0.9% 100 ML IVPB SCH ×3 (12:16→20:42)
[2021-10-08] MEDS: PHOS-NAK 1 PKT PACK PO SCH (12:32)
[2021-10-08] MEDS: Vancomycin 1 GM in Premix Bag 1 BAG IVPB SCH (16:44)
[2021-10-08] MEDS ORDERED: Loperamide HCl 2 MG CAP PO PRN (16:56)
[2021-10-08] MEDS ORDERED: Loperamide HCl 2 MG CAP PO SCH (17:00)
[2021-10-08 17:38] LABS: Anion Gap 11 mmol/L (10-20); BUN (Urea Nitrogen) 19 mg/dL (8.4-25.7); Calc. Creatinine Clearance 56 mL/min (70-130); Calcium 7.9 mg/dL (7.8-10.44); Carbon Dioxide 19 mmol/L (23-31); Chloride 108 mmol/L (98-107); Glucose 269 mg/dL (80-115); Sodium 135 mmol/L (136-145)
[2021-10-08] MEDS: Mirtazapine 30 MG TAB PO SCH (20:43)
[2021-10-08] MEDS: Rosuvastatin 20 MG TAB PO SCH (20:44)
[2021-10-08] MEDS ORDERED: Dextrose 5% in Water 1,000 ML IV PRN (20:55)
[2021-10-08] MEDS ORDERED: HumaLOG 300 UNITS/3 ML VIAL SC PRN (20:55)
[2021-10-08] MEDS ORDERED: Dextrose 50% Abboject 50 ML SYRINGE SLOW IVP PRN (20:55)
[2021-10-09] MEDS: Acetaminophen 325 MG TAB PO PRN (04:49)
[2021-10-09] MEDS: Meropenem 1 GM in Sodium Chloride 0.9% 100 ML IVPB SCH ×2 (04:49→12:37)
[2021-10-09] MEDS: Levothyroxine Sodium 75 MCG TAB PO SCH (04:50)
[2021-10-09 05:35] LABS: Band 14 % (5-11); Hemoglobin 9.1 g/dL (14.0-18.0); Lymphocytes 28 % (21-51); MDiff Complete? YES; Mean Corpuscular HGB CONC 37.6 g/dL (32.0-36.0); Mean Corpuscular Hemoglobin 36.6 pg (27.0-31.0); Mean Corpuscular Volume 97.3 fL (78.0-98.0); Mean Platelet Volume 8.8 fL (7.4-10.4); Metamyelocyte 4 % (0-0); Monocytes 8 % (0-10); Myelocyte 2 % (0-0); Neutrophil 43 % (42-75); Nucleated RBC 7 % (0); Platelet Count 82 thou/uL (130-400); Platelet Morphology Comment Appears Decreased; RBC Distribution Width 15.4 % (11.5-14.5); RBC Morphology Normal; Reactive Lymphocytes 1 % (0-10); Red Blood Cell (RBC) Count 2.48 mill/uL (4.70-6.10); White Blood Cell (WBC) Count 4.7 thou/uL (4.8-10.8)
[2021-10-09 05:44] LABS: ALT (SGPT) 29 U/L (8-55); AST (SGOT) 39 U/L (5-34); Albumin 2.7 g/dL (3.4-4.8); Alkaline Phosphatase 127 U/L (40-110); Anion Gap 12 mmol/L (10-20); BUN (Urea Nitrogen) 15 mg/dL (8.4-25.7); Bilirubin, Total 0.8 mg/dL (0.2-1.2); Calc. Creatinine Clearance 61 mL/min (70-130); Carbon Dioxide 19 mmol/L (23-31); Chloride 110 mmol/L (98-107); Globulin 1.7 g/dL (2.4-3.5); Glucose 132 mg/dL (80-115); Protein, Total 4.4 g/dL (5.8-8.1); Sodium 138 mmol/L (136-145)
[2021-10-09 05:45] LABS: Potassium 2.7 mmol/L (3.5-5.1)
[2021-10-09] MEDS ORDERED: Potassium Chloride 20 MEQ TAB PO SCH ×2 (06:15→10:00)
[2021-10-09] MEDS: Sodium Chloride 0.9% 1,000 ML IV SCH ×3 (06:31→23:43)
[2021-10-09 06:41] LABS: Magnesium 1.8 mg/dL (1.6-2.6)
[2021-10-09] MEDS ORDERED: Magnesium 2 GM/50 ML(in water) 2 GM in Premix Bag 1 BAG IVPB SCH (08:00)
[2021-10-09] MEDS: Megestrol Acetate 800 MG/20 ML UDCUP PO SCH (09:05)
[2021-10-09] MEDS: predniSONE 20 MG TAB PO SCH (09:05)
[2021-10-09 13:15] LABS: Potassium 3.8 mmol/L (3.5-5.1)
[2021-10-09] MEDS ORDERED: VANCOMYCIN 1.25 GM/250 ML BAG 1.25 GM in Premix Bag 1 BAG IVPB SCH (15:00)
[2021-10-09] MEDS: Mirtazapine 30 MG TAB PO SCH (20:41)
[2021-10-09] MEDS: HYDROcodone/Acetaminophen 5/325 mg Tablet PO PRN (20:42)
[2021-10-09] MEDS: Rosuvastatin 20 MG TAB PO SCH (20:42)
[2021-10-10 05:11] LABS: ALT (SGPT) 31 U/L (8-55); AST (SGOT) 39 U/L (5-34); Albumin 2.6 g/dL (3.4-4.8); Alkaline Phosphatase 149 U/L (40-110); Anion Gap 10 mmol/L (10-20); BUN (Urea Nitrogen) 12 mg/dL (8.4-25.7); Bilirubin, Total 0.8 mg/dL (0.2-1.2); Calc. Creatinine Clearance 61 mL/min (70-130); Calcium 8.1 mg/dL (7.8-10.44); Carbon Dioxide 19 mmol/L (23-31); Chloride 110 mmol/L (98-107); Globulin 1.9 g/dL (2.4-3.5); Glucose 205 mg/dL (80-115); Magnesium 1.6 mg/dL (1.6-2.6); Potassium 3.4 mmol/L (3.5-5.1); Protein, Total 4.5 g/dL (5.8-8.1); Sodium 136 mmol/L (136-145)
[2021-10-10 05:20] LABS: Band 14 % (5-11); Hemoglobin 8.4 g/dL (14.0-18.0); Hypochromia SLIGHT = 6-15 cells (100X) (0-5/hpf); Lymphocytes 17 % (21-51); MDiff Complete? YES; Mean Corpuscular Hemoglobin 36.4 pg (27.0-31.0); Mean Corpuscular Volume 98.4 fL (78.0-98.0); Mean Platelet Volume 8.5 fL (7.4-10.4); Monocytes 7 % (0-10); Neutrophil 62 % (42-75); Platelet Count 84 thou/uL (130-400); Platelet Morphology Comment Appears Decreased; RBC Distribution Width 15.9 % (11.5-14.5); White Blood Cell (WBC) Count 4.4 thou/uL (4.8-10.8)
[2021-10-10] MEDS: HYDROcodone/Acetaminophen 5/325 mg Tablet PO PRN (05:44)
[2021-10-10] MEDS: Levothyroxine Sodium 75 MCG TAB PO SCH (05:45)
[2021-10-10] MEDS ORDERED: Potassium Chloride 20 MEQ TAB PO SCH (07:00)
[2021-10-10] MEDS ORDERED: Magnesium 2 GM/50 ML(in water) 2 GM in Premix Bag 1 BAG IVPB SCH (07:00)
[2021-10-10] MEDS: predniSONE 20 MG TAB PO SCH (07:46)
[2021-10-10] MEDS: Megestrol Acetate 800 MG/20 ML UDCUP PO SCH (07:46)
[2021-10-10] MEDS: Aspirin 325 MG TAB PO SCH (07:46)
[2021-10-10 11:01] VITALS: BP 159/96; TEMP 97.9
== END 2021-10-10 12:44 | disposition home or self-care (01) | DRG 308 ==
LOC: ERS 09:07 → ERHOLD 11:48 → IMCU/EMU 18:50 → 2SW 10-07 22:40
PROVIDERS: ADMIT Internal Medicine; ATTEND Internal Medicine
PROC: 30233N1 Transfusion of Nonautologous Red Blood Cells into Peripheral Vein, Percutaneous Approach (ICD-10-PCS; principal; 2021-10-08)
DX: I49.9 Cardiac arrhythmia, unspecified (principal); J96.01 Acute respiratory failure with hypoxia; J18.9 Pneumonia, unspecified organism; C79.31 Secondary malignant neoplasm of brain; E87.1 Hypo-osmolality and hyponatremia; E87.2 Acidosis; N17.9 Acute kidney failure, unspecified; D59.10 Autoimmune hemolytic anemia, unspecified; I24.8 Other forms of acute ischemic heart disease; C34.90 Malignant neoplasm of unspecified part of unspecified bronchus or lung; C79.51 Secondary malignant neoplasm of bone; J44.0 Chronic obstructive pulmonary disease with (acute) lower respiratory infection; D64.81 Anemia due to antineoplastic chemotherapy; T45.1X5A Adverse effect of antineoplastic and immunosuppressive drugs, initial encounter; I48.91 Unspecified atrial fibrillation; E03.9 Hypothyroidism, unspecified; K21.9 Gastro-esophageal reflux disease without esophagitis; E86.0 Dehydration; E78.5 Hyperlipidemia, unspecified; I25.10 Atherosclerotic heart disease of native coronary artery without angina pectoris; Z20.822 Contact with and (suspected) exposure to COVID-19; E78.00 Pure hypercholesterolemia, unspecified; D69.6 Thrombocytopenia, unspecified; N18.30 Chronic kidney disease, stage 3 unspecified; E87.6 Hypokalemia; E83.39 Other disorders of phosphorus metabolism; E83.42 Hypomagnesemia; F17.200 Nicotine dependence, unspecified, uncomplicated; E88.09 Other disorders of plasma-protein metabolism, not elsewhere classified; Z79.82 Long term (current) use of aspirin; Z98.890 Other specified postprocedural states; Z79.899 Other long term (current) drug therapy; Z95.5 Presence of coronary angioplasty implant and graft; Y92.9 Unspecified place or not applicable
CPT/HCPCS: 36415; 36416; 36430; 71045; 78451; 80048; 80053; 80202; 81003; 81015; 82436; 82553; 83605; 83735; 83880; 83930; 83935; 84100; 84133; 84300; 84484; 85025; 85046; 85610; 85730; 86140; 86850; 86870; 86900; 86901; 86922; 87040; 87045; 87046; 87081; 87086; 87149; 87324; 87427; 87449; 93005; 94760; 96374; 96375; A9540; J1642; J1644; J1815; J2185; J3370; J3475; J3480; J3490; J7050; J7512; P9016

== ENCOUNTER 2021-11-17 13:22 | Outpatient (CLI) | payer OTHER | END 2021-11-17 13:23 | disposition home or self-care (01) | LOC: ULT 13:22 | PROVIDERS: ATTEND Internal Medicine Hematology & Oncology | DX: Z51.11 Encounter for antineoplastic chemotherapy (principal); C79.9 Secondary malignant neoplasm of unspecified site; C79.31 Secondary malignant neoplasm of brain; C34.01 Malignant neoplasm of right main bronchus; D70.1 Agranulocytosis secondary to cancer chemotherapy; Z79.899 Other long term (current) drug therapy; I34.0 Nonrheumatic mitral (valve) insufficiency | CPT/HCPCS: 93306 ==

== ENCOUNTER 2021-11-18 08:45 | Outpatient (CLI) | payer OTHER ==
[2021-11-18] MEDS ORDERED: Magnevist 469MG/ML 20 ML VIAL ONE (10:12)
== END 2021-11-18 08:46 | disposition home or self-care (01) ==
LOC: PET 08:45
PROVIDERS: ATTEND Internal Medicine Hematology & Oncology
DX: C34.01 Malignant neoplasm of right main bronchus (principal); C79.31 Secondary malignant neoplasm of brain; C79.51 Secondary malignant neoplasm of bone; G93.9 Disorder of brain, unspecified; G93.0 Cerebral cysts
CPT/HCPCS: 70553; 78815; A9552; A9579

== ENCOUNTER 2021-12-05 17:30 | Inpatient (IN) | payer OTHER ==
[2021-12-05 18:23] LABS: Hemoglobin 7.4 g/dL (14.0-18.0); Mean Corpuscular HGB CONC 33.9 g/dL (32.0-36.0); Mean Corpuscular Hemoglobin 37.6 pg (27.0-31.0); Platelet Count 22 thou/uL (130-400); RBC Distribution Width 18.7 % (11.5-14.5); Red Blood Cell (RBC) Count 1.96 mill/uL (4.70-6.10); White Blood Cell (WBC) Count 0.6 thou/uL (4.8-10.8)
[2021-12-05 18:45] LABS: Anisocytosis SLIGHT = 6-15 cells (100X) (0-5/hpf); Band 3 % (5-11); Lymphocytes 80 % (21-51); MDiff Complete? YES; Macrocytosis SLIGHT = 6-15 cells (100X) (0-5/hpf); Monocytes 2 % (0-10); Neutrophil 15 % (42-75); Nucleated RBC 2 % (0); Ovalocytes SLIGHT = 2-5 cells (100X) (0-1/hpf); Platelet Morphology Comment Appears Decreased; Poikilocytosis SLIGHT = 6-15 cells (100X) (0-5/hpf); Polychromasia SLIGHT = 2-3 cells (100X) (0-2/hpf); Schistocytes SLIGHT = 2-5 cells (100X) (0-1/hpf); Tear Drops SLIGHT = 2-5 cells (100X) (0-1/hpf)
[2021-12-05 18:46] LABS: ALT (SGPT) 37 U/L (8-55); AST (SGOT) 30 U/L (5-34); Albumin 3.1 g/dL (3.4-4.8); Alkaline Phosphatase 395 U/L (40-110); Anion Gap 16 mmol/L (10-20); BUN (Urea Nitrogen) 38 mg/dL (8.4-25.7); Bilirubin, Total 0.7 mg/dL (0.2-1.2); CK (CPK) 76 U/L (30-200); Calc. Creatinine Clearance 0 mL/min (70-130); Calcium 9.2 mg/dL (7.8-10.44); Carbon Dioxide 17 mmol/L (23-31); Chloride 107 mmol/L (98-107); Globulin 2.4 g/dL (2.4-3.5); Glucose 172 mg/dL (80-115); Magnesium 1.1 mg/dL (1.6-2.6); Potassium 3.2 mmol/L (3.5-5.1); Protein, Total 5.5 g/dL (5.8-8.1); Sodium 137 mmol/L (136-145)
[2021-12-05 19:08] LABS: CKMB 0.9 ng/mL (0-6.6)
[2021-12-05] MEDS ORDERED: Magnesium 2 GM/50 ML BAG (IN WATER) ONE (19:45)
[2021-12-05] MEDS ORDERED: Potassium Chloride 20 MEQ/100 ML PREMIX BAG ONE ×2 (19:45→22:07)
[2021-12-05] MEDS ORDERED: HYDROcodone/Acetaminophen 5/325 mg Tablet PO PRN (21:06)
[2021-12-05] MEDS ORDERED: Ondansetron PF 4 MG/2 ML Vial IVP PRN (21:06)
[2021-12-05] MEDS ORDERED: PEGFILGRASTIM-JMDB 6 MG/0.6 ML SYRINGE SQ SCH (21:30)
[2021-12-05 21:40] LABS: Troponin I 0.035 ng/mL (< 0.028)
[2021-12-05] MEDS ORDERED: Vancomycin 1 GM in Premix Bag 1 BAG IVPB SCH (22:00)
[2021-12-05 22:27] LABS: Free T4 (Free Thyroxine) 0.63 ng/dL (0.70-1.48); T4 4.5 ug/dL (4.87-11.72)
[2021-12-06] MEDS: Lactated Ringer's 1,000 ML IV SCH ×3 (00:34→20:20)
[2021-12-06] MEDS: Magnesium 2 GM/50 ML(in water) 2 GM in Premix Bag 1 BAG IVPB SCH ×3 (00:37→06:07)
[2021-12-06] MEDS: Zolpidem Tartrate 5 MG TAB PO PRN (00:38)
[2021-12-06 00:49] LABS: Troponin I 0.028 ng/mL (< 0.028)
[2021-12-06 01:13] VITALS: BMI 20.1
[2021-12-06] MEDS: Cefepime 2 GM in Sodium Chloride 0.9% 100 ML IVPB SCH ×3 (02:13→22:51)
[2021-12-06 04:09] LABS: SARS-CoV-2 NAA Rapid Test Not Detected (NotDetected)
[2021-12-06 08:32] LABS: Hemoglobin 8.8 g/dL (14.0-18.0); Mean Corpuscular Hemoglobin 36.6 pg (27.0-31.0); Mean Platelet Volume 10.9 fL (7.4-10.4); Platelet Count 20 thou/uL (130-400); RBC Distribution Width 19.6 % (11.5-14.5); Red Blood Cell (RBC) Count 2.41 mill/uL (4.70-6.10); White Blood Cell (WBC) Count 0.4 thou/uL (4.8-10.8)
[2021-12-06 08:49] LABS: ALT (SGPT) 33 U/L (8-55); AST (SGOT) 26 U/L (5-34); Albumin 3.1 g/dL (3.4-4.8); Alkaline Phosphatase 340 U/L (40-110); Anion Gap 16 mmol/L (10-20); BUN (Urea Nitrogen) 33 mg/dL (8.4-25.7); Bilirubin, Total 1.1 mg/dL (0.2-1.2); Calc. Creatinine Clearance 48 mL/min (70-130); Calcium 8.9 mg/dL (7.8-10.44); Carbon Dioxide 16 mmol/L (23-31); Chloride 107 mmol/L (98-107); Globulin 2.5 g/dL (2.4-3.5); Glucose 206 mg/dL (80-115); Magnesium 3.7 mg/dL (1.6-2.6); Magnesium 3.8 mg/dL (1.6-2.6); Phosphorus 2.6 mg/dL (2.3-4.7); Potassium 3.8 mmol/L (3.5-5.1); Protein, Total 5.6 g/dL (5.8-8.1); Sodium 135 mmol/L (136-145)
[2021-12-06] MEDS ORDERED: Amlodipine 5 MG TAB PO SCH ×2 (09:00→14:15)
[2021-12-06 09:17] LABS: Bite Cells SLIGHT = 2-5 cells (100X) (0-1/hpf); MDiff Complete? YES; Platelet Morphology Comment Appears Decreased; Polychromasia SLIGHT = 2-3 cells (100X) (0-2/hpf)
[2021-12-06] MEDS: Levothyroxine 150 MCG TAB PO SCH (09:18)
[2021-12-06] MEDS: predniSONE 20 MG TAB PO SCH (09:18)
[2021-12-06] MEDS: Multivitamin W/ Minerals 1 TAB PO SCH (09:19)
[2021-12-06] MEDS: Megestrol Acetate 800 MG/20 ML UDCUP PO SCH (09:19)
[2021-12-06] MEDS ORDERED: Carvedilol 6.25 MG TAB PO SCH (14:30)
[2021-12-06] MEDS: Rosuvastatin 20 MG TAB PO SCH (20:20)
[2021-12-06] MEDS: Carvedilol 6.25 MG TAB PO SCH (20:20)
[2021-12-06] MEDS ORDERED: Vancomycin 1 GM in Premix Bag 1 BAG IVPB SCH (23:59)
[2021-12-07 03:52] LABS: Bilirubin Negative (Negative); Blood, Urine Trace (Negative); Clarity Clear (Clear); Glucose, Urine (Dipstick) Greater than 1000 mg/dL (Negative); Ketone, Urine Negative (Negative); Leukocyte Negative Leu/uL (Negative); Nitrite Negative (Negative); Protein, Urine (Dipstick) 50 mg/dL (Neg-Trace); RBC/HPF 0-3 HPF (0-3); Specific Gravity, Urine 1.021 (1.002-1.036); Squamous Epithelial 0-3 HPF (0-3); Urobilinogen Normal mg/dL (Less than 2); WBC/HPF 0-3 HPF (0-3); pH, Urine 5.5 (5.0-9.0)
[2021-12-07 03:53] LABS: Bacteria/HPF 1+ HPF (None Seen)
[2021-12-07 07:17] LABS: Hemoglobin 7.7 g/dL (14.0-18.0); Mean Corpuscular HGB CONC 35.2 g/dL (32.0-36.0); Mean Corpuscular Hemoglobin 36.6 pg (27.0-31.0); Mean Platelet Volume 11.3 fL (7.4-10.4); Platelet Count 13 thou/uL (130-400); Red Blood Cell (RBC) Count 2.09 mill/uL (4.70-6.10); White Blood Cell (WBC) Count 0.5 thou/uL (4.8-10.8)
[2021-12-07 07:31] LABS: Anion Gap 9 mmol/L (10-20); BUN (Urea Nitrogen) 22 mg/dL (8.4-25.7); Calc. Creatinine Clearance 67 mL/min (70-130); Calcium 8.6 mg/dL (7.8-10.44); Carbon Dioxide 21 mmol/L (23-31); Chloride 109 mmol/L (98-107); Glucose 176 mg/dL (80-115); Potassium 3.3 mmol/L (3.5-5.1); Sodium 136 mmol/L (136-145)
[2021-12-07] MEDS: Levothyroxine 150 MCG TAB PO SCH (07:44)
[2021-12-07 07:48] LABS: Bite Cells SLIGHT = 2-5 cells (100X) (0-1/hpf); MDiff Complete? YES; Platelet Morphology Comment Appears Decreased; Polychromasia SLIGHT = 2-3 cells (100X) (0-2/hpf); Tear Drops SLIGHT = 2-5 cells (100X) (0-1/hpf)
[2021-12-07] MEDS: Lactated Ringer's 1,000 ML IV SCH ×3 (09:46→21:01)
[2021-12-07] MEDS: predniSONE 20 MG TAB PO SCH (09:47)
[2021-12-07] MEDS: Carvedilol 6.25 MG TAB PO SCH ×2 (09:48→20:37)
[2021-12-07] MEDS: Amlodipine 5 MG TAB PO SCH (09:48)
[2021-12-07] MEDS: Megestrol Acetate 800 MG/20 ML UDCUP PO SCH (09:50)
[2021-12-07] MEDS: Multivitamin W/ Minerals 1 TAB PO SCH (09:50)
[2021-12-07] MEDS: Saccharomyces boulardii 250 MG CAP PO SCH (09:51)
[2021-12-07] MEDS: Sodium Bicarbonate Tab 325 MG TAB PO SCH ×2 (09:51→20:37)
[2021-12-07] MEDS: Potassium Bicarbonate/Cit Ac 20 MEQ TAB PO SCH ×4 (09:52→20:38)
[2021-12-07] MEDS: Cefepime 2 GM in Sodium Chloride 0.9% 100 ML IVPB SCH ×2 (09:53→20:38)
[2021-12-07] MEDS: Rosuvastatin 20 MG TAB PO SCH (20:37)
[2021-12-07] MEDS: Loperamide HCl 2 MG CAP PO PRN (21:01)
[2021-12-07 23:34] LABS: Vancomycin, Trough 11.2 ug/mL
[2021-12-08] MEDS: VANCOMYCIN 1.25 GM/250 ML BAG 1.25 GM in Premix Bag 1 BAG IVPB SCH ×2 (00:07→23:56)
[2021-12-08] MEDS: Loperamide HCl 2 MG CAP PO PRN ×3 (01:33→18:49)
[2021-12-08] MEDS: Potassium Bicarbonate/Cit Ac 20 MEQ TAB PO SCH ×6 (01:38→22:35)
[2021-12-08] MEDS: Levothyroxine 150 MCG TAB PO SCH (05:25)
[2021-12-08 06:18] LABS: Anion Gap 9 mmol/L (10-20); BUN (Urea Nitrogen) 15 mg/dL (8.4-25.7); Calc. Creatinine Clearance 71 mL/min (70-130); Calcium 8.5 mg/dL (7.8-10.44); Carbon Dioxide 23 mmol/L (23-31); Chloride 107 mmol/L (98-107); Glucose 215 mg/dL (80-115); Magnesium 1.5 mg/dL (1.6-2.6); Sodium 136 mmol/L (136-145)
[2021-12-08 06:19] LABS: Band 10 % (5-11); Hemoglobin 6.3 g/dL (14.0-18.0); Hypochromia SLIGHT = 6-15 cells (100X) (0-5/hpf); Lymphocytes 30 % (21-51); MDiff Complete? YES; Macrocytosis SLIGHT = 6-15 cells (100X) (0-5/hpf); Mean Corpuscular HGB CONC 36.5 g/dL (32.0-36.0); Mean Corpuscular Hemoglobin 38.1 pg (27.0-31.0); Mean Platelet Volume 10.9 fL (7.4-10.4); Monocytes 20 % (0-10); Neutrophil 30 % (42-75); Nucleated RBC 0 % (0); Platelet Count 13 thou/uL (130-400); Platelet Morphology Comment Appears Decreased; RBC Distribution Width 18.6 % (11.5-14.5); Red Blood Cell (RBC) Count 1.66 mill/uL (4.70-6.10); White Blood Cell (WBC) Count 0.6 thou/uL (4.8-10.8)
[2021-12-08 06:23] LABS: Potassium 2.6 mmol/L (3.5-5.1)
[2021-12-08] MEDS ORDERED: Potassium Chloride 20 MEQ TAB PO SCH (06:28)
[2021-12-08] MEDS ORDERED: Potassium Phosphate 30 MMOL in Sodium Chloride 0.9% 250 ML 250 ML IVPB SCH (06:30)
[2021-12-08] MEDS ORDERED: Magnesium Sulfate In Water 4 GM in Premix Bag 1 BAG IVPB SCH (06:45)
[2021-12-08 06:58] LABS: Phosphorus 1.3 mg/dL (2.3-4.7)
[2021-12-08] MEDS: predniSONE 20 MG TAB PO SCH (08:50)
[2021-12-08] MEDS: Amlodipine 5 MG TAB PO SCH (08:51)
[2021-12-08] MEDS: Carvedilol 6.25 MG TAB PO SCH ×2 (08:51→21:02)
[2021-12-08] MEDS: Multivitamin W/ Minerals 1 TAB PO SCH (08:52)
[2021-12-08] MEDS: Saccharomyces boulardii 250 MG CAP PO SCH (08:52)
[2021-12-08] MEDS: Megestrol Acetate 800 MG/20 ML UDCUP PO SCH (08:52)
[2021-12-08] MEDS: Sodium Bicarbonate Tab 325 MG TAB PO SCH ×2 (08:52→21:02)
[2021-12-08] MEDS: Cefepime 2 GM in Sodium Chloride 0.9% 100 ML IVPB SCH ×2 (10:43→21:02)
[2021-12-08] MEDS: Lactated Ringer's 1,000 ML IV SCH ×2 (11:12→21:02)
[2021-12-08] MEDS: Rosuvastatin 20 MG TAB PO SCH (21:02)
[2021-12-08] MEDS: Zolpidem Tartrate 5 MG TAB PO PRN (23:56)
[2021-12-09] MEDS: Potassium Bicarbonate/Cit Ac 20 MEQ TAB PO SCH ×6 (02:12→20:13)
[2021-12-09] MEDS: Lactated Ringer's 1,000 ML IV SCH ×2 (05:15→13:32)
[2021-12-09] MEDS: Levothyroxine 150 MCG TAB PO SCH (05:16)
[2021-12-09] MEDS: predniSONE 20 MG TAB PO SCH (10:27)
[2021-12-09] MEDS: Amlodipine 5 MG TAB PO SCH (10:27)
[2021-12-09] MEDS: Megestrol Acetate 800 MG/20 ML UDCUP PO SCH (10:28)
[2021-12-09] MEDS: Carvedilol 6.25 MG TAB PO SCH ×2 (10:28→20:12)
[2021-12-09] MEDS: Multivitamin W/ Minerals 1 TAB PO SCH (10:28)
[2021-12-09] MEDS: Saccharomyces boulardii 250 MG CAP PO SCH (10:28)
[2021-12-09] MEDS: Sodium Bicarbonate Tab 325 MG TAB PO SCH ×2 (10:29→20:12)
[2021-12-09] MEDS: Cefepime 2 GM in Sodium Chloride 0.9% 100 ML IVPB SCH ×2 (10:46→20:11)
[2021-12-09 12:45] LABS: Hemoglobin 9.7 g/dL (14.0-18.0)
[2021-12-09] MEDS ORDERED: Magnesium 2 GM/50 ML(in water) 2 GM in Premix Bag 1 BAG IVPB SCH (13:15)
[2021-12-09] MEDS: Potassium Chloride 20 MEQ TAB PO SCH (16:23)
[2021-12-09] MEDS: Diphenoxylate HCl/Atropine Tablet PO PRN (20:12)
[2021-12-09] MEDS: Rosuvastatin 20 MG TAB PO SCH (20:12)
[2021-12-10 00:25] LABS: Vancomycin, Trough 17.9 ug/mL
[2021-12-10] MEDS: VANCOMYCIN 1.25 GM/250 ML BAG 1.25 GM in Premix Bag 1 BAG IVPB SCH (00:49)
[2021-12-10] MEDS: Lactated Ringer's 1,000 ML IV SCH ×2 (00:49→12:13)
[2021-12-10] MEDS: Potassium Bicarbonate/Cit Ac 20 MEQ TAB PO SCH ×2 (01:01→05:52)
[2021-12-10] MEDS: Levothyroxine 150 MCG TAB PO SCH (05:29)
[2021-12-10 06:01] LABS: Anion Gap 9 mmol/L (10-20); BUN (Urea Nitrogen) 11 mg/dL (8.4-25.7); Calc. Creatinine Clearance 76 mL/min (70-130); Calcium 8.4 mg/dL (7.8-10.44); Carbon Dioxide 24 mmol/L (23-31); Chloride 109 mmol/L (98-107); Glucose 133 mg/dL (80-115); Sodium 139 mmol/L (136-145)
[2021-12-10 06:03] LABS: Hemoglobin 8.8 g/dL (14.0-18.0); Mean Corpuscular Hemoglobin 34.1 pg (27.0-31.0); Mean Platelet Volume 11.9 fL (7.4-10.4); Platelet Count 17 thou/uL (130-400); RBC Distribution Width 19.5 % (11.5-14.5); Red Blood Cell (RBC) Count 2.58 mill/uL (4.70-6.10); White Blood Cell (WBC) Count 2.5 thou/uL (4.8-10.8)
[2021-12-10 06:11] LABS: Band 43 % (5-11); Lymphocytes 16 % (21-51); MDiff Complete? YES; Metamyelocyte 1 % (0-0); Monocytes 7 % (0-10); Myelocyte 2 % (0-0); Neutrophil 30 % (42-75); Platelet Morphology Comment Appears Decreased; Reactive Lymphocytes 1 % (0-10); Tear Drops SLIGHT = 2-5 cells (100X) (0-1/hpf)
[2021-12-10] MEDS ORDERED: Potassium Phosphate 30 MMOL in Sodium Chloride 0.9% 500 ML IVPB SCH (08:00)
[2021-12-10 08:14] LABS: Phosphorus 1.2 mg/dL (2.3-4.7)
[2021-12-10] MEDS: Multivitamin W/ Minerals 1 TAB PO SCH (08:50)
[2021-12-10] MEDS: Sodium Bicarbonate Tab 325 MG TAB PO SCH ×2 (08:50→20:52)
[2021-12-10] MEDS: Saccharomyces boulardii 250 MG CAP PO SCH (08:50)
[2021-12-10] MEDS: Megestrol Acetate 800 MG/20 ML UDCUP PO SCH (08:50)
[2021-12-10] MEDS: Amlodipine 5 MG TAB PO SCH (08:50)
[2021-12-10] MEDS: predniSONE 20 MG TAB PO SCH (08:51)
[2021-12-10] MEDS: Carvedilol 6.25 MG TAB PO SCH ×2 (08:51→20:52)
[2021-12-10] MEDS: Potassium Chloride 20 MEQ TAB PO SCH ×2 (08:51→17:32)
[2021-12-10] MEDS ORDERED: Potassium Phosphate 15 MMOL in Sodium Chloride 0.9% 250 ML 250 ML IVPB SCH (09:00)
[2021-12-10 09:12] LABS: Magnesium 1.7 mg/dL (1.6-2.6)
[2021-12-10] MEDS: Cefepime 2 GM in Sodium Chloride 0.9% 100 ML IVPB SCH ×2 (10:19→20:52)
[2021-12-10] MEDS ORDERED: Magnesium Sulfate In Water 4 GM in Premix Bag 1 BAG IVPB SCH (11:45)
[2021-12-10] MEDS: Diphenoxylate HCl/Atropine Tablet PO PRN ×2 (12:51→20:53)
[2021-12-10] MEDS: HYDROcodone/Acetaminophen 5/325 mg Tablet PO PRN (17:32)
[2021-12-10] MEDS ORDERED: Sodium Chloride 0.9% 1,000 ML IV SCH (20:30)
[2021-12-10] MEDS: Rosuvastatin 20 MG TAB PO SCH (20:52)
[2021-12-10] MEDS: Nystatin Powder 15 GM BOT TOP SCH (21:16)
[2021-12-11] MEDS: VANCOMYCIN 1.25 GM/250 ML BAG 1.25 GM in Premix Bag 1 BAG IVPB SCH (00:45)
[2021-12-11] MEDS: HYDROcodone/Acetaminophen 5/325 mg Tablet PO PRN ×2 (01:48→12:15)
[2021-12-11] MEDS: Levothyroxine 150 MCG TAB PO SCH (05:31)
[2021-12-11] MEDS: Diphenoxylate HCl/Atropine Tablet PO PRN (05:41)
[2021-12-11 06:09] LABS: ALT (SGPT) 18 U/L (8-55); AST (SGOT) 25 U/L (5-34); Albumin 2.2 g/dL (3.4-4.8); Alkaline Phosphatase 181 U/L (40-110); Anion Gap 9 mmol/L (10-20); BUN (Urea Nitrogen) 12 mg/dL (8.4-25.7); Bilirubin, Total 0.6 mg/dL (0.2-1.2); Calc. Creatinine Clearance 63 mL/min (70-130); Calcium 8.4 mg/dL (7.8-10.44); Carbon Dioxide 22 mmol/L (23-31); Chloride 112 mmol/L (98-107); Glucose 167 mg/dL (80-115); Magnesium 2.1 mg/dL (1.6-2.6); Phosphorus 2.2 mg/dL (2.3-4.7); Potassium 3.5 mmol/L (3.5-5.1); Protein, Total 4.2 g/dL (5.8-8.1); Sodium 139 mmol/L (136-145)
[2021-12-11 07:11] LABS: Hemoglobin 8.9 g/dL (14.0-18.0); Mean Corpuscular HGB CONC 34.4 g/dL (32.0-36.0); Mean Corpuscular Hemoglobin 34.9 pg (27.0-31.0); Platelet Count 21 thou/uL (130-400); RBC Distribution Width 19.7 % (11.5-14.5); Red Blood Cell (RBC) Count 2.53 mill/uL (4.70-6.10); White Blood Cell (WBC) Count 2.8 thou/uL (4.8-10.8)
[2021-12-11] MEDS: Megestrol Acetate 800 MG/20 ML UDCUP PO SCH (08:07)
[2021-12-11] MEDS: Sodium Bicarbonate Tab 325 MG TAB PO SCH ×2 (08:07→20:36)
[2021-12-11] MEDS: Nystatin Powder 15 GM BOT TOP SCH ×2 (08:07→20:37)
[2021-12-11] MEDS: Carvedilol 6.25 MG TAB PO SCH ×2 (08:08→20:36)
[2021-12-11] MEDS: Amlodipine 5 MG TAB PO SCH (08:08)
[2021-12-11] MEDS: Multivitamin W/ Minerals 1 TAB PO SCH (08:08)
[2021-12-11] MEDS: Saccharomyces boulardii 250 MG CAP PO SCH (08:08)
[2021-12-11] MEDS: Potassium Chloride 20 MEQ TAB PO SCH ×2 (08:09→16:52)
[2021-12-11] MEDS: predniSONE 20 MG TAB PO SCH (08:09)
[2021-12-11] MEDS: PHOS-NAK 1 PKT PACK PO SCH ×2 (09:18→16:52)
[2021-12-11] MEDS ORDERED: Cholestyramine/Aspartame 4 gm Packet PO SCH (10:30)
[2021-12-11] MEDS: Cefepime 2 GM in Sodium Chloride 0.9% 100 ML IVPB SCH ×2 (10:41→20:37)
[2021-12-11] MEDS: Loperamide HCl 2 MG CAP PO SCH ×2 (15:10→20:36)
[2021-12-11] MEDS: Rosuvastatin 20 MG TAB PO SCH (20:36)
[2021-12-11] MEDS: Cholestyramine/Aspartame 4 gm Packet PO SCH (20:37)
[2021-12-11 23:29] LABS: Vancomycin, Trough 23.9 ug/mL
[2021-12-12] MEDS: Diphenoxylate HCl/Atropine Tablet PO PRN ×2 (02:14→17:29)
[2021-12-12] MEDS: Levothyroxine 150 MCG TAB PO SCH (05:14)
[2021-12-12] MEDS ORDERED: Vancomycin 1 GM in Premix Bag 1 BAG IVPB SCH (06:00)
[2021-12-12] MEDS: Potassium Chloride 20 MEQ TAB PO SCH ×2 (09:16→16:23)
[2021-12-12] MEDS: Amlodipine 5 MG TAB PO SCH (09:17)
[2021-12-12] MEDS: Multivitamin W/ Minerals 1 TAB PO SCH (09:17)
[2021-12-12] MEDS: Sodium Bicarbonate Tab 325 MG TAB PO SCH ×3 (09:17→20:12)
[2021-12-12] MEDS: Loperamide HCl 2 MG CAP PO SCH ×3 (09:17→20:12)
[2021-12-12] MEDS: Megestrol Acetate 800 MG/20 ML UDCUP PO SCH (09:17)
[2021-12-12] MEDS: Nystatin Powder 15 GM BOT TOP SCH ×2 (09:17→20:12)
[2021-12-12] MEDS: Saccharomyces boulardii 250 MG CAP PO SCH (09:17)
[2021-12-12] MEDS: Carvedilol 6.25 MG TAB PO SCH ×2 (09:17→20:12)
[2021-12-12] MEDS: predniSONE 20 MG TAB PO SCH (09:18)
[2021-12-12] MEDS: PHOS-NAK 1 PKT PACK PO SCH ×2 (09:18→16:23)
[2021-12-12] MEDS: Cefepime 2 GM in Sodium Chloride 0.9% 100 ML IVPB SCH ×2 (10:03→22:41)
[2021-12-12] MEDS: Cholestyramine/Aspartame 4 gm Packet PO SCH ×2 (10:03→22:42)
[2021-12-12] MEDS: HYDROcodone/Acetaminophen 5/325 mg Tablet PO PRN ×2 (10:35→17:29)
[2021-12-12 11:27] LABS: Anion Gap 10 mmol/L (10-20); BUN (Urea Nitrogen) 10 mg/dL (8.4-25.7); Calc. Creatinine Clearance 61 mL/min (70-130); Calcium 8.6 mg/dL (7.8-10.44); Carbon Dioxide 20 mmol/L (23-31); Chloride 114 mmol/L (98-107); Glucose 143 mg/dL (80-115); Magnesium 1.5 mg/dL (1.6-2.6); Phosphorus 1.6 mg/dL (2.3-4.7); Potassium 3.4 mmol/L (3.5-5.1); Sodium 141 mmol/L (136-145)
[2021-12-12] MEDS ORDERED: Magnesium Sulfate In Water 4 GM in Premix Bag 1 BAG IVPB SCH (11:30)
[2021-12-12] MEDS ORDERED: Potassium Phosphate 30 MMOL in Sodium Chloride 0.9% 250 ML 250 ML IVPB SCH (11:30)
[2021-12-12] MEDS ORDERED: Mag-Al Plus 1200 MG/1200 MG/120 MG/30 ML UDCUP PO PRN (17:05)
[2021-12-12] MEDS: Rosuvastatin 20 MG TAB PO SCH (20:12)
[2021-12-13 05:25] LABS: Anion Gap 12 mmol/L (10-20); BUN (Urea Nitrogen) 11 mg/dL (8.4-25.7); Calc. Creatinine Clearance 57 mL/min (70-130); Calcium 8.5 mg/dL (7.8-10.44); Carbon Dioxide 18 mmol/L (23-31); Chloride 116 mmol/L (98-107); Glucose 161 mg/dL (80-115); Magnesium 2.1 mg/dL (1.6-2.6); Sodium 142 mmol/L (136-145)
[2021-12-13] MEDS: Levothyroxine 150 MCG TAB PO SCH (05:53)
[2021-12-13 06:44] LABS: Anisocytosis MODERATE=16-30 cells (100X) (0-5/hpf); Band 34 % (5-11); Hemoglobin 9.4 g/dL (14.0-18.0); Lymphocytes 16 % (21-51); MDiff Complete? YES; Mean Corpuscular Hemoglobin 34.8 pg (27.0-31.0); Mean Platelet Volume 11.6 fL (7.4-10.4); Metamyelocyte 2 % (0-0); Monocytes 7 % (0-10); Myelocyte 5 % (0-0); Neutrophil 36 % (42-75); Nucleated RBC 2 % (0); Platelet Count 35 thou/uL (130-400); Platelet Morphology Comment Appears Decreased; RBC Distribution Width 20.2 % (11.5-14.5); Red Blood Cell (RBC) Count 2.71 mill/uL (4.70-6.10); Tear Drops SLIGHT = 2-5 cells (100X) (0-1/hpf); White Blood Cell (WBC) Count 8.9 thou/uL (4.8-10.8)
[2021-12-13] MEDS: PHOS-NAK 1 PKT PACK PO SCH ×2 (08:18→15:54)
[2021-12-13] MEDS: Megestrol Acetate 800 MG/20 ML UDCUP PO SCH (08:18)
[2021-12-13] MEDS: predniSONE 20 MG TAB PO SCH (08:19)
[2021-12-13] MEDS: Sodium Bicarbonate Tab 325 MG TAB PO SCH ×3 (08:19→20:12)
[2021-12-13] MEDS: Carvedilol 6.25 MG TAB PO SCH ×2 (08:19→20:12)
[2021-12-13] MEDS: Amlodipine 5 MG TAB PO SCH (08:19)
[2021-12-13] MEDS: Saccharomyces boulardii 250 MG CAP PO SCH (08:20)
[2021-12-13] MEDS: Loperamide HCl 2 MG CAP PO SCH ×4 (08:20→20:13)
[2021-12-13] MEDS: Potassium Chloride 20 MEQ TAB PO SCH ×2 (08:20→15:52)
[2021-12-13] MEDS: Multivitamin W/ Minerals 1 TAB PO SCH (08:20)
[2021-12-13] MEDS: Nystatin Powder 15 GM BOT TOP SCH ×2 (08:27→20:12)
[2021-12-13] MEDS: Cholestyramine/Aspartame 4 gm Packet PO SCH ×3 (10:07→20:12)
[2021-12-13] MEDS: HYDROcodone/Acetaminophen 5/325 mg Tablet PO PRN ×2 (11:21→18:45)
[2021-12-13] MEDS: Rosuvastatin 20 MG TAB PO SCH (20:12)
[2021-12-14] MEDS: HYDROcodone/Acetaminophen 5/325 mg Tablet PO PRN ×2 (00:35→09:45)
[2021-12-14] MEDS: Levothyroxine 150 MCG TAB PO SCH (05:04)
[2021-12-14 05:37] LABS: Mean Corpuscular HGB CONC 33.7 g/dL (32.0-36.0); Mean Corpuscular Hemoglobin 34.8 pg (27.0-31.0); Mean Platelet Volume 11.2 fL (7.4-10.4); Platelet Count 50 thou/uL (130-400); RBC Distribution Width 20.2 % (11.5-14.5); Red Blood Cell (RBC) Count 2.58 mill/uL (4.70-6.10); White Blood Cell (WBC) Count 8.5 thou/uL (4.8-10.8)
[2021-12-14 05:40] LABS: ALT (SGPT) 24 U/L (8-55); AST (SGOT) 38 U/L (5-34); Albumin 2.3 g/dL (3.4-4.8); Alkaline Phosphatase 303 U/L (40-110); Anion Gap 9 mmol/L (10-20); BUN (Urea Nitrogen) 11 mg/dL (8.4-25.7); Bilirubin, Total 0.8 mg/dL (0.2-1.2); Calc. Creatinine Clearance 58 mL/min (70-130); Calcium 8.6 mg/dL (7.8-10.44); Carbon Dioxide 22 mmol/L (23-31); Chloride 114 mmol/L (98-107); Glucose 104 mg/dL (80-115); Magnesium 1.6 mg/dL (1.6-2.6); Potassium 4.1 mmol/L (3.5-5.1); Protein, Total 4.3 g/dL (5.8-8.1); Sodium 141 mmol/L (136-145)
[2021-12-14 05:59] LABS: Anisocytosis SLIGHT = 6-15 cells (100X) (0-5/hpf); Band 46 % (5-11); Lymphocytes 8 % (21-51); MDiff Complete? YES; Macrocytosis SLIGHT = 6-15 cells (100X) (0-5/hpf); Metamyelocyte 3 % (0-0); Monocytes 8 % (0-10); Myelocyte 3 % (0-0); Neutrophil 32 % (42-75); Nucleated RBC 1 % (0); Platelet Morphology Comment Appears Decreased; Tear Drops SLIGHT = 2-5 cells (100X) (0-1/hpf)
[2021-12-14 09:02] VITALS: TEMP 98.5
[2021-12-14] MEDS: Nystatin Powder 15 GM BOT TOP SCH (09:28)
[2021-12-14] MEDS: Multivitamin W/ Minerals 1 TAB PO SCH (09:29)
[2021-12-14] MEDS: Potassium Chloride 20 MEQ TAB PO SCH (09:29)
[2021-12-14] MEDS: Saccharomyces boulardii 250 MG CAP PO SCH (09:29)
[2021-12-14] MEDS: Sodium Bicarbonate Tab 325 MG TAB PO SCH (09:29)
[2021-12-14] MEDS: Amlodipine 5 MG TAB PO SCH (09:29)
[2021-12-14] MEDS: Megestrol Acetate 800 MG/20 ML UDCUP PO SCH (09:29)
[2021-12-14] MEDS: Cholestyramine/Aspartame 4 gm Packet PO SCH (09:30)
[2021-12-14] MEDS: predniSONE 20 MG TAB PO SCH (09:30)
[2021-12-14] MEDS: Loperamide HCl 2 MG CAP PO SCH (09:30)
[2021-12-14] MEDS: PHOS-NAK 1 PKT PACK PO SCH (09:30)
[2021-12-14] MEDS: Carvedilol 6.25 MG TAB PO SCH (09:30)
[2021-12-14] MEDS ORDERED: Magnesium Sulfate 4 GM in Sodium Chloride 0.9% 250 ML 250 ML IVPB SCH (10:15)
[2021-12-14] MEDS ORDERED: Carvedilol 6.25 MG TAB PO SCH ×3 (10:37→21:00)
[2021-12-14] MEDS ORDERED: Magnesium Sulfate In Water 4 GM in Premix Bag 1 BAG IVPB SCH (11:00)
[2021-12-14 12:54] VITALS: BP 138/82
[2021-12-14] MEDS ORDERED: Magnesium Oxide 400 MG TAB PO SCH (21:00)
== END 2021-12-14 14:34 | disposition home or self-care (01) | DRG 808 ==
LOC: ERS 17:30 → 2SW 20:29 → OBSVTOIN 20:29 → MSONC 12-06 15:16
PROVIDERS: ADMIT Internal Medicine; ATTEND Internal Medicine
PROC: 30233N1 Transfusion of Nonautologous Red Blood Cells into Peripheral Vein, Percutaneous Approach (ICD-10-PCS; principal; 2021-12-05)
DX: D61.810 Antineoplastic chemotherapy induced pancytopenia (principal); E43 Unspecified severe protein-calorie malnutrition; C34.90 Malignant neoplasm of unspecified part of unspecified bronchus or lung; C79.31 Secondary malignant neoplasm of brain; K52.1 Toxic gastroenteritis and colitis; N17.9 Acute kidney failure, unspecified; E87.2 Acidosis; D59.10 Autoimmune hemolytic anemia, unspecified; R65.10 Systemic inflammatory response syndrome (SIRS) of non-infectious origin without acute organ dysfunction; T45.1X5A Adverse effect of antineoplastic and immunosuppressive drugs, initial encounter; Z20.822 Contact with and (suspected) exposure to COVID-19; E83.42 Hypomagnesemia; I10 Essential (primary) hypertension; E78.5 Hyperlipidemia, unspecified; E03.9 Hypothyroidism, unspecified; E87.6 Hypokalemia; E83.39 Other disorders of phosphorus metabolism; I25.10 Atherosclerotic heart disease of native coronary artery without angina pectoris; K21.9 Gastro-esophageal reflux disease without esophagitis; Z95.1 Presence of aortocoronary bypass graft; Z79.890 Hormone replacement therapy; Z79.52 Long term (current) use of systemic steroids; Z79.899 Other long term (current) drug therapy; Z87.891 Personal history of nicotine dependence; Z68.20 Body mass index [BMI] 20.0-20.9, adult; Z51.5 Encounter for palliative care
CPT/HCPCS: 36415; 36430; 71045; 80048; 80053; 80202; 81001; 82550; 82553; 83605; 83735; 83880; 84100; 84145; 84436; 84439; 84443; 84484; 85014; 85018; 85025; 85027; 86850; 86870; 86900; 86901; 86922; 87324; 87449; 93005; 96374; 96375; J0692; J1642; J2405; J3370; J3475; J3480; J3490; J7030; J7050; J7120; J7512; P9016; Q5108; U0002; U0003; U0005

== ENCOUNTER 2021-12-31 21:39 | Inpatient (IN) | payer OTHER ==
[2021-12-31 22:14] LABS: #Eosinphils 0.1 thou/uL (0.0-0.7); #Lymphocytes 0.8 thou/uL (1.20-3.40); #Monocytes 0.8 thou/uL (0.11-0.59); #Neutrophils 12.6 thou/uL (1.40-6.50); %Basophils 0.1 % (0.0-1.0); %Eosinophils 0.5 % (0.0-10.0); %Lymphocytes 5.7 % (21.0-51.0); %Monocytes 5.8 % (0.0-10.0); Hemoglobin 9.9 g/dL (14.0-18.0); Mean Corpuscular HGB CONC 32.6 g/dL (32.0-36.0); Mean Corpuscular Hemoglobin 35.7 pg (27.0-31.0); Mean Platelet Volume 9.8 fL (7.4-10.4); Platelet Count 56 thou/uL (130-400); RBC Distribution Width 20.2 % (11.5-14.5); Red Blood Cell (RBC) Count 2.77 mill/uL (4.70-6.10); White Blood Cell (WBC) Count 14.4 thou/uL (4.8-10.8)
[2021-12-31 22:35] LABS: ALT (SGPT) 64 U/L (8-55); AST (SGOT) 121 U/L (5-34); Albumin 2.5 g/dL (3.4-4.8); Alkaline Phosphatase 618 U/L (40-110); Anion Gap 17 mmol/L (10-20); BUN (Urea Nitrogen) 26 mg/dL (8.4-25.7); Bilirubin, Total 1.5 mg/dL (0.2-1.2); Calc. Creatinine Clearance 0 mL/min (70-130); Carbon Dioxide 18 mmol/L (23-31); Chloride 110 mmol/L (98-107); Globulin 2.4 g/dL (2.4-3.5); Glucose 162 mg/dL (80-115); Potassium 5.7 mmol/L (3.5-5.1); Protein, Total 4.9 g/dL (5.8-8.1); Sodium 139 mmol/L (136-145)
[2021-12-31] MEDS ORDERED: Piperacillin/Tazobactam 3.375 GM VIAL ONE (23:23)
[2021-12-31] MEDS ORDERED: Vancomycin 1 GM/200 ML BAG ONE (23:29)
[2022-01-01 00:41] LABS: Bilirubin Negative (Negative); Blood, Urine Negative (Negative); Clarity Clear (Clear); Glucose, Urine (Dipstick) Normal (Negative); Ketone, Urine Negative (Negative); Leukocyte 25 Leu/uL (Negative); Nitrite Negative (Negative); Protein, Urine (Dipstick) 50 mg/dL (Neg-Trace); Specific Gravity, Urine 1.021 (1.002-1.036); Squamous Epithelial None Seen HPF (0-3); Urobilinogen Normal mg/dL (Less than 2); pH, Urine 7.5 (5.0-9.0)
[2022-01-01 00:43] LABS: RBC/HPF 0-3 HPF (0-3)
[2022-01-01 00:44] LABS: Bacteria/HPF None Seen HPF (None Seen); WBC/HPF 0-3 HPF (0-3)
[2022-01-01 00:46] LABS: Yeast-Budding 3+ HPF (None Seen); Yeast-Hyphae None Seen HPF (None Seen)
[2022-01-01 01:56] LABS: SARS-CoV-2 NAA Rapid Test Not Detected (NotDetected)
[2022-01-01] MEDS ORDERED: Ondansetron PF 4 MG/2 ML Vial IVP PRN (04:13)
[2022-01-01] MEDS ORDERED: Acetaminophen 325 MG TAB PO PRN (04:13)
[2022-01-01] MEDS ORDERED: hydrALAZINE 20 MG/ML VIAL SLOW IVP PRN (04:15)
[2022-01-01] MEDS ORDERED: Vancomycin 1 GM in Premix Bag 1 BAG IVPB SCH (04:30)
[2022-01-01] MEDS: Sodium Chloride 0.9% 1,000 ML IV SCH ×3 (05:59→16:04)
[2022-01-01 08:00] LABS: Anion Gap 11 mmol/L (10-20); BUN (Urea Nitrogen) 20 mg/dL (8.4-25.7); Calc. Creatinine Clearance 36 mL/min (70-130); Calcium 8.3 mg/dL (7.8-10.44); Carbon Dioxide 20 mmol/L (23-31); Chloride 114 mmol/L (98-107); Glucose 87 mg/dL (80-115); Potassium 4.7 mmol/L (3.5-5.1); Sodium 140 mmol/L (136-145)
[2022-01-01] MEDS ORDERED: Heparin 5,000 UNITS/ML VIAL SC SCH (09:00)
[2022-01-01] MEDS ORDERED: Cefepime 1 GM in Sodium Chloride 0.9% 100 ML IVPB SCH (09:00)
[2022-01-01] MEDS ORDERED: Magnesium Oxide 400 MG TAB PO SCH (09:00)
[2022-01-01] MEDS: Sodium Bicarbonate Tab 325 MG TAB PO SCH ×3 (09:41→21:00)
[2022-01-01] MEDS: Levothyroxine 150 MCG TAB PO SCH (09:42)
[2022-01-01] MEDS: Megestrol Acetate 800 MG/20 ML UDCUP PO SCH (09:42)
[2022-01-01] MEDS: Saccharomyces boulardii 250 MG CAP PO SCH (09:42)
[2022-01-01] MEDS: Cholestyramine/Aspartame 4 gm Packet PO SCH ×3 (09:43→21:00)
[2022-01-01] MEDS ORDERED: cefTRIAXone\\ROCEPHIN 1 GM in Sodium Chloride 0.9% 100 ML IVPB SCH (10:00)
[2022-01-01 10:24] LABS: Creatinine, Urine 53.67 mg/dL (63-166)
[2022-01-01 11:00] LABS: #Eosinphils 0.1 thou/uL (0.0-0.7); #Lymphocytes 0.8 thou/uL (1.20-3.40); #Monocytes 0.8 thou/uL (0.11-0.59); #Neutrophils 14.3 thou/uL (1.40-6.50); %Eosinophils 0.4 % (0.0-10.0); %Lymphocytes 5.2 % (21.0-51.0); %Neutrophils 89.4 % (42.0-75.0); Anisocytosis SLIGHT = 6-15 cells (100X) (0-5/hpf); Hemoglobin 9.2 g/dL (14.0-18.0); MDiff Complete? YES; Macrocytosis SLIGHT = 6-15 cells (100X) (0-5/hpf); Mean Corpuscular Hemoglobin 35.3 pg (27.0-31.0); Mean Platelet Volume 9.7 fL (7.4-10.4); Platelet Count 49 thou/uL (130-400); Platelet Morphology Comment Appears Decreased; Polychromasia SLIGHT = 2-3 cells (100X) (0-2/hpf); Red Blood Cell (RBC) Count 2.61 mill/uL (4.70-6.10)
[2022-01-01] MEDS: Morphine 2 MG/ML VIAL SLOW IVP PRN (16:36)
[2022-01-01] MEDS ORDERED: predniSONE 5 MG TAB PO SCH (18:00)
[2022-01-01] MEDS: Rosuvastatin 20 MG TAB PO SCH (21:00)
[2022-01-01] MEDS: HYDROcodone/Acetaminophen 5/325 mg Tablet PO PRN (21:11)
[2022-01-01] MEDS: Heparin 5,000 UNITS/ML VIAL SC SCH (21:28)
[2022-01-01] MEDS ORDERED: Vancomycin HCl 750 MG in Sodium Chloride 0.9% 250 ML 250 ML IVPB SCH (23:59)
[2022-01-02] MEDS: Sodium Chloride 0.9% 1,000 ML IV SCH (02:40)
[2022-01-02] MEDS ORDERED: Sodium Bicarbonate 75 MEQ in Sodium Chloride 0.45% 1,000 ML IV SCH (06:00)
[2022-01-02 07:28] LABS: Anion Gap 12 mmol/L (10-20); BUN (Urea Nitrogen) 15 mg/dL (8.4-25.7); Calc. Creatinine Clearance 45 mL/min (70-130); Calcium 8.4 mg/dL (7.8-10.44); Carbon Dioxide 19 mmol/L (23-31); Chloride 114 mmol/L (98-107); Potassium 4.3 mmol/L (3.5-5.1); Sodium 141 mmol/L (136-145)
[2022-01-02 07:35] LABS: Glucose 59 mg/dL (80-115)
[2022-01-02 07:56] LABS: #Lymphocytes 0.7 thou/uL (1.20-3.40); #Monocytes 0.6 thou/uL (0.11-0.59); #Neutrophils 11.5 thou/uL (1.40-6.50); %Eosinophils 0.3 % (0.0-10.0); %Lymphocytes 5.7 % (21.0-51.0); %Monocytes 4.5 % (0.0-10.0); %Neutrophils 89.6 % (42.0-75.0); Hemoglobin 8.6 g/dL (14.0-18.0); Mean Corpuscular HGB CONC 31.8 g/dL (32.0-36.0); Mean Corpuscular Hemoglobin 35.2 pg (27.0-31.0); Mean Platelet Volume 8.9 fL (7.4-10.4); Platelet Count 45 thou/uL (130-400); RBC Distribution Width 20.1 % (11.5-14.5); Red Blood Cell (RBC) Count 2.43 mill/uL (4.70-6.10); White Blood Cell (WBC) Count 12.8 thou/uL (4.8-10.8)
[2022-01-02 07:58] LABS: Anisocytosis SLIGHT = 6-15 cells (100X) (0-5/hpf); Hypochromia SLIGHT = 6-15 cells (100X) (0-5/hpf); MDiff Complete? YES; Macrocytosis SLIGHT = 6-15 cells (100X) (0-5/hpf); Platelet Morphology Comment Appears Decreased; Polychromasia SLIGHT = 2-3 cells (100X) (0-2/hpf); Tear Drops SLIGHT = 2-5 cells (100X) (0-1/hpf)
[2022-01-02] MEDS: predniSONE 5 MG TAB PO SCH (08:21)
[2022-01-02] MEDS: Levothyroxine 150 MCG TAB PO SCH (08:21)
[2022-01-02] MEDS: Morphine 2 MG/ML VIAL SLOW IVP PRN (08:21)
[2022-01-02] MEDS: Saccharomyces boulardii 250 MG CAP PO SCH (08:21)
[2022-01-02] MEDS: Heparin 5,000 UNITS/ML VIAL SC SCH ×2 (08:22→20:39)
[2022-01-02] MEDS: cefTRIAXone\\ROCEPHIN 1 GM in Sodium Chloride 0.9% 100 ML IVPB SCH (08:22)
[2022-01-02] MEDS ORDERED: cefTRIAXone\\ROCEPHIN 1 GM in Sodium Chloride 0.9% 100 ML IVPB SCH (09:00)
[2022-01-02 09:26] LABS: Phosphorus 2.5 mg/dL (2.3-4.7)
[2022-01-02 09:28] LABS: Magnesium 1.9 mg/dL (1.6-2.6)
[2022-01-02] MEDS: Megestrol Acetate 800 MG/20 ML UDCUP PO SCH (09:29)
[2022-01-02] MEDS: Cholestyramine/Aspartame 4 gm Packet PO SCH ×3 (09:29→20:39)
[2022-01-02] MEDS: Sodium Bicarbonate Tab 325 MG TAB PO SCH ×3 (09:30→20:39)
[2022-01-02] MEDS: HYDROcodone/Acetaminophen 5/325 mg Tablet PO PRN (13:09)
[2022-01-02 14:26] VITALS: BMI 20.5
[2022-01-02] MEDS: Rosuvastatin 20 MG TAB PO SCH (20:39)
[2022-01-03 06:03] LABS: Hemoglobin 9.2 g/dL (14.0-18.0); Mean Corpuscular HGB CONC 32.5 g/dL (32.0-36.0); Mean Corpuscular Hemoglobin 35.3 pg (27.0-31.0); Mean Platelet Volume 9.7 fL (7.4-10.4); Platelet Count 49 thou/uL (130-400); Red Blood Cell (RBC) Count 2.61 mill/uL (4.70-6.10); White Blood Cell (WBC) Count 13.3 thou/uL (4.8-10.8)
[2022-01-03 06:34] LABS: Albumin 2.1 g/dL (3.4-4.8); Anion Gap 13 mmol/L (10-20); BUN (Urea Nitrogen) 14 mg/dL (8.4-25.7); BUN/Creatinine Ratio 10.45; Calc. Creatinine Clearance 46 mL/min (70-130); Calcium 8.3 mg/dL (7.8-10.44); Carbon Dioxide 22 mmol/L (23-31); Chloride 109 mmol/L (98-107); Glucose 117 mg/dL (80-115); Phosphorus 1.5 mg/dL (2.3-4.7); Potassium 3.9 mmol/L (3.5-5.1); Sodium 140 mmol/L (136-145)
[2022-01-03] MEDS ORDERED: Sodium Phosphate 15 MMOL in Sodium Chloride 0.9% 250 ML 250 ML IVPB SCH (08:00)
[2022-01-03 08:03] VITALS: BP 92/61; TEMP 99.1
[2022-01-03] MEDS: Sodium Bicarbonate Tab 325 MG TAB PO SCH ×2 (08:25→14:48)
[2022-01-03] MEDS: Megestrol Acetate 800 MG/20 ML UDCUP PO SCH (08:25)
[2022-01-03] MEDS: cefTRIAXone\\ROCEPHIN 1 GM in Sodium Chloride 0.9% 100 ML IVPB SCH (08:25)
[2022-01-03] MEDS: Levothyroxine 150 MCG TAB PO SCH (08:26)
[2022-01-03] MEDS: Cholestyramine/Aspartame 4 gm Packet PO SCH ×2 (08:26→14:48)
[2022-01-03] MEDS: Saccharomyces boulardii 250 MG CAP PO SCH (08:26)
[2022-01-03] MEDS: Heparin 5,000 UNITS/ML VIAL SC SCH (08:26)
[2022-01-03] MEDS: predniSONE 5 MG TAB PO SCH (08:26)
[2022-01-03] MEDS ORDERED: Sodium Bicarbonate 50 MEQ in Sodium Chloride 0.45% 1,000 ML IV SCH (10:00)
[2022-01-04] MEDS ORDERED: Prevnar 13-Val Conj/PF 0.5 ML SYRINGE IM ONE (09:00)
== END 2022-01-03 15:25 | disposition hospice, home (50) | DRG 871 ==
LOC: ERS 21:39 → CCU 23:26 → T4-B 01-01 13:27
PROVIDERS: ADMIT Internal Medicine; ATTEND Internal Medicine
DX: A41.9 Sepsis, unspecified organism (principal); L89.303 Pressure ulcer of unspecified buttock, stage 3; D61.810 Antineoplastic chemotherapy induced pancytopenia; E44.0 Moderate protein-calorie malnutrition; C34.90 Malignant neoplasm of unspecified part of unspecified bronchus or lung; C79.31 Secondary malignant neoplasm of brain; N17.9 Acute kidney failure, unspecified; E87.2 Acidosis; Z20.822 Contact with and (suspected) exposure to COVID-19; Z66 Do not resuscitate; Z51.5 Encounter for palliative care; I10 Essential (primary) hypertension; K21.9 Gastro-esophageal reflux disease without esophagitis; E78.5 Hyperlipidemia, unspecified; T45.1X5A Adverse effect of antineoplastic and immunosuppressive drugs, initial encounter; I25.10 Atherosclerotic heart disease of native coronary artery without angina pectoris; E87.5 Hyperkalemia; E83.52 Hypercalcemia; E86.0 Dehydration; R65.20 Severe sepsis without septic shock; E78.2 Mixed hyperlipidemia; E03.9 Hypothyroidism, unspecified; Z79.890 Hormone replacement therapy; Z79.51 Long term (current) use of inhaled steroids; Z79.899 Other long term (current) drug therapy; Z95.1 Presence of aortocoronary bypass graft; Z87.891 Personal history of nicotine dependence; Z68.20 Body mass index [BMI] 20.0-20.9, adult
CPT/HCPCS: 36415; 36416; 70450; 76770; 80048; 80053; 80069; 81003; 81015; 82533; 82570; 83605; 83735; 83880; 84100; 84300; 84484; 85025; 85027; 87040; 87086; 93005; 94760; J0696; J1642; J2270; J2543; J3370; J3490; J7050; J7512; U0002